=== PATIENT | male | born 1940 | race Caucasian/White ===

== ENCOUNTER → 2016-09-18 | Outpatient (CLI) | payer MEDICARE | LOC: RAD 11:11 | PROVIDERS: ATTEND Family Medicine | DX: R05 Cough (principal) | CPT/HCPCS: 71020 ==

== ENCOUNTER 2016-09-19 13:34 | Emergency (ER) | payer MEDICARE ==
[~2016-09-19 13:34] MED LIST: EPOETIN ALFA INJ 20,000 UNIT/1 ML VIAL (ONCOLOGY) ONE
--- NOTE | 2016-09-19 13:56 | ER Document Report ---
ED Medical Screen (RME) - General Stated Complaint: DIFFICULTY BREATHING Notes: onset: 2 months ago but 3-4 days has become worse dyspnea on exertion, cyanosis of his lips. has had difficulty ambulating. Saw Dr. Augilar two days ago when he did blood work and CXR, 09/18. denies COPD, CHF PMH: CAD requiring CABG, coranary stents, CKD, DM, HTN TRAVEL OUTSIDE OF THE [place] IN LAST 30 DAYS: No - Related Data Allergies/Adverse Reactions: codeine [Codeine] Allergy (Verified 09/19/16 13:49) Past Medical History - Past Medical History Cardiac Medical History: Reports: Hx Coronary Artery Disease, Hx Hypertension Neurological Medical History: Denies: Hx Seizures Endocrine Medical History: Reports: Hx Diabetes Mellitus Type 2 Past Surgical History: Reports: Hx Cardiac Catheterization, Hx Cardiac Surgery, Hx Coronary Artery Bypass Graft
[2016-09-19 14:20] LABS: ABSOLUTE BASOPHILS # (AUTO) 0.1 10^3/uL (0.0-0.2); ABSOLUTE EOSINOPHILS # (AUTO) 0.2 10^3/uL (0.0-0.6); ABSOLUTE LYMPHOCYTES (AUTO) 0.7 10^3/uL (0.5-4.7); ABSOLUTE MONOCYTES (AUTO) 0.9 10^3/uL (0.1-1.4); ABSOLUTE NEUT (AUTO) 4.7 10^3/uL (1.7-8.2); BASOPHILS % (AUTO) 1.5 % (0-2); EOSINOPHILS % (AUTO) 2.3 % (0-6); HEMATOCRIT 26.6 % (37.9-51.0); HEMOGLOBIN 8.2 g/dL (13.5-17.0); MEAN CORPUSCULAR HEMOGLOBIN 24.1 pg (27.0-33.4); MEAN CORPUSCULAR HGB CONC 30.8 g/dL (32.0-36.0); MEAN CORPUSCULAR VOLUME 78 fl (80-97); MONOCYTES % (AUTO) 14.5 % (3-13); RED BLOOD COUNT 3.41 10^6/uL (4.35-5.55); RED CELL DISTRIBUTION WIDTH 18.7 % (11.5-14.0); SEGMENTED NEUTROPHILS % (AUTO) 71.7 % (42-78); WHITE BLOOD COUNT 6.5 10^3/uL (4.0-10.5)
[2016-09-19 14:39] LABS: ALANINE AMINOTRANSFERASE 26 U/L (21-72); ALBUMIN 3.2 g/dL (3.5-5.0); ALKALINE PHOSPHATASE 94 U/L (38-126); ANION GAP 15 (5-19); ASPARTATE AMINO TRANSFERASE 25 U/L (17-59); BILIRUBIN,TOTAL 0.6 mg/dL (0.2-1.3); BLOOD UREA NITROGEN 29 mg/dL (7-20); CALCIUM 8.4 mg/dL (8.4-10.2); CARBON DIOXIDE 22 mmol/L (22-30); CHLORIDE 102 mmol/L (98-107); CREATININE RESULT 2.25 mg/dL (0.52-1.25); GLUCOSE 237 mg/dL (75-110); POTASSIUM 4.9 mmol/L (3.6-5.0); SODIUM 138.6 mmol/L (137-145); TOTAL PROTEIN 6.7 g/dL (6.3-8.2)
[2016-09-19 15:40] LABS: CREATINE KINASE MB 2.05 ng/mL (<4.55)
[2016-09-19 15:46] LABS: TROPONIN I 0.071 ng/mL
[2016-09-19] MEDS ORDERED: EPOETIN ALFA INJ 20000 UNIT/1 ML VIAL (RENAL) SUBCUT ONE (16:29)
[2016-09-19] MEDS ORDERED: EPOETIN ALFA INJ 20000 UNIT/1 ML VIAL (RENAL) IV ONE (16:29)
--- NOTE | 2016-09-19 16:55 | ER Document Report ---
[id number] Mode of Arrival: Ambulatory Information source: Patient, DrClark Najera, Outside Facility Records Notes: 76-year-old male presents with complaints of chronic kidney disease shortness of breath chronic anemia. Patient denies any fevers or chills nausea vomiting or diarrhea. Patient notes shortness of breath occurs when ambulating Patient denies any symptoms at rest denies any bloody stools TRAVEL OUTSIDE OF THE [place] IN LAST 30 DAYS: No - HPI Onset: Last week Onset/Duration: Persistent Quality of pain: No pain Severity: Mild Pain Level: Denies Associated symptoms: Shortness of breath Exacerbated by: Walking Relieved by: Denies Similar symptoms previously: Yes Recently seen / treated by doctor: Yes - Related Data Allergies/Adverse Reactions: codeine [Codeine] Allergy (Verified 09/19/16 13:49) Past Medical History - Social History Smoking Status: Never Smoker Cigarette use (# per day): No Chew tobacco use (# tins/day): No Smoking Education Provided: No Frequency of alcohol use: None Drug Abuse: None Family History: Reviewed & Not Pertinent Patient has suicidal ideation: No Patient has homicidal ideation: No - Past Medical History Cardiac Medical History: Reports: Hx Coronary Artery Disease, Hx Hypertension Neurological Medical History: Denies: Hx Seizures Endocrine Medical History: Reports: Hx Diabetes Mellitus Type 2 Renal/ Medical History: Denies: Hx Peritoneal Dialysis Past Surgical History: Reports: Hx Cardiac Catheterization, Hx Cardiac Surgery, Hx Coronary Artery Bypass Graft - Immunizations Hx Diphtheria, Pertussis, Tetanus Vaccination: Yes Review of Systems - Review of Systems Notes: REVIEW OF SYSTEMS: CONSTITUTIONAL : Denies fever, chills, or sweats. Denies recent illness. EENT: Denies eye, ear, throat, or mouth pain or symptoms. Denies nasal or sinus congestion or discharge. Denies throat, tongue, or mouth swelling or difficulty swallowing. CARDIOVASCULAR: Denies chest pain. Denies palpitations or racing or irregular heart beat. Denies ankle edema. RESPIRATORY: Admits shortness of breath GASTROINTESTINAL: Denies abdominal pain or distention. Denies nausea, vomiting , or diarrhea. Denies blood in vomitus, stools, or per rectum. Denies black, tarry stools. Denies constipation. GENITOURINARY: Denies difficulty urinating, painful urination, burning, frequency, blood in urine, or discharge. MUSCULOSKELETAL: Denies back or neck pain or stiffness. Denies joint pain or swelling. SKIN: Denies rash, lesions or sores. HEMATOLOGIC : Denies easy bruising or bleeding. LYMPHATIC: Denies swollen, enlarged glands. NEUROLOGICAL: Admits to weakness PSYCHIATRIC: Denies anxiety or stress. Denies depression, suicidal ideation, or homicidal ideation. ALL OTHER SYSTEMS REVIEWED AND NEGATIVE. Dictation was performed using [employer] voice recognition software PHYSICAL EXAMINATION: GENERAL: Well-appearing, well-nourished and in no acute distress. HEAD: Atraumatic, normocephalic. EYES: Pupils equal round and reactive to light, extraocular movements intact, sclera anicteric, conjunctiva are normal. ENT: Nares patent, oropharynx clear without exudates. Moist mucous membranes. NECK: Normal range of motion, supple without lymphadenopathy LUNGS: Breath sounds clear to auscultation bilaterally and equal. No wheezes rales or rhonchi. HEART: Regular rate and rhythm without murmurs ABDOMEN: Soft, nontender, nondistended abdomen. No guarding, no rebound. No masses appreciated. Hemoccult negative Musculoskeletal: Normal range of motion, no pitting or edema. No cyanosis. NEUROLOGICAL: Cranial nerves grossly intact. Normal speech, normal gait. Normal sensory, motor exams PSYCH: Normal mood, normal affect. SKIN: Warm, Dry, normal turgor, no rashes or lesions noted. Physical Exam - Vital signs Vitals: Temp Pulse Resp BP Pulse Ox 98.2 F 73 27 H 147/63 H 95 09/19/16 13:49 09/19/16 13:49 09/19/16 13:49 09/19/16 13:49 09/19/16 13:49 Course - Re-evaluation Re-evalutation: 09/19/16 16:54 Dr noriega consulted, he beleives the anemia is secondary to CKD, request procrit. pt happy with this plan will follow up tomorrow 09/19/16 17:19 Patient was ambulated and satting 100% do not believe this is anything respiratory related but rather due to anemia of chronic kidney disease Hemoccult was negative patient will follow up with PCP tomorrow After performing a Medical Screening Examination, I estimate there is LOW risk for ACUTE CORONARY SYNDROME, RESPIRATORY FAILURE, SEPSIS OR MENINGITIS, thus I consider the discharge disposition reasonable. The patient and I have discussed the diagnosis and risks, and we agree with discharging home with close follow- up. We also discussed returning to the Emergency Department immediately if new or worsening symptoms occur. We have discussed the symptoms which are most concerning (e.g., changing or worsening pain, trouble swallowing or breathing, neck stiffness, fever) that necessitate immediate return. 09/19/16 23:33 - Vital Signs Vital signs: Temp Pulse Resp BP Pulse Ox 98.2 F 73 24 H 155/76 H 94 09/19/16 13:49 09/19/16 13:49 09/19/16 17:01 09/19/16 17:01 09/19/16 17:01 - Laboratory Result Diagrams: 09/19/16 14:00 09/19/16 14:00 Laboratory results interpreted by me: 09/19/16 09/19/16 09/19/16 14:00 14:00 14:00 RBC 3.41 L Hgb 8.2 L Hct 26.6 L MCV 78 L MCH 24.1 L MCHC 30.8 L RDW 18.7 H Lymphocytes % 10.0 L Monocytes % 14.5 H BUN 29 H Creatinine 2.25 H Est GFR ( Amer) 34 L Est GFR (Non-Af Amer) 28 L Glucose 237 H Creatine Kinase NT-Pro-B Natriuret Pep 72258 H Albumin 3.2 L 09/19/16 14:00 RBC Hgb Hct MCV MCH MCHC RDW Lymphocytes % Monocytes % BUN Creatinine Est GFR ( Amer) Est GFR (Non-Af Amer) Glucose Creatine Kinase 197 H NT-Pro-B Natriuret Pep Albumin - Diagnostic Test Radiology reviewed: Image reviewed, Reports reviewed Discharge - Discharge Clinical Impression: CKD (chronic kidney disease) Qualifiers: Chronic kidney disease stage: stage 3 (moderate) Qualified Code(s): N18.3 - Chronic kidney disease, stage 3 (moderate) Anemia Qualifiers: Anemia type: other cause Other causes of anemia: other cause, not classified Qualified Code(s): D64.89 - Other specified anemias Dyspnea Qualifiers: Dyspnea type: dyspnea on exertion Qualified Code(s): R06.09 - Other forms of dyspnea Condition: Stable Disposition: HOME, SELF-CARE Instructions: Anemia ([facility]) Referrals: RENUKA NORIEGA MD [Primary Care Provider] - Follow up tomorrow
[2016-09-19 17:38] VITALS: BP 155/76
--- NOTE | 2016-09-20 14:55 | EKG REPORT ---
SEVERITY:- ABNORMAL ECG - SINUS RHYTHM NON SPECIFIC IVCD : Confirmed by: Rosa Bosch 20-Sep-2016 14:53:38
== END 2016-09-19 17:39 | disposition home or self-care (01) ==
LOC: ER 13:34
DX: N18.3 Chronic kidney disease, stage 3 (moderate) (principal); D64.89 Other specified anemias; R06.09 Other forms of dyspnea; R06.02 Shortness of breath
CPT/HCPCS: 93005; 99284; 96372; 36415; 82553; 82550; 85025; 82272; 80053; 84484; 83880; 71020; 93010; J0885; Q4081

== ENCOUNTER → 2016-09-23 | Outpatient (CLI) | payer MEDICARE ==
[2016-09-23 11:54] LABS: ABSOLUTE BASOPHILS # (AUTO) 0.1 10^3/uL (0.0-0.2); ABSOLUTE EOSINOPHILS # (AUTO) 0.1 10^3/uL (0.0-0.6); ABSOLUTE LYMPHOCYTES (AUTO) 0.9 10^3/uL (0.5-4.7); ABSOLUTE NEUT (AUTO) 5.6 10^3/uL (1.7-8.2); BASOPHILS % (AUTO) 1.7 % (0-2); EOSINOPHILS % (AUTO) 1.9 % (0-6); HEMATOCRIT 29.8 % (37.9-51.0); HGB HCT DIFFERENCE -2.8; LYMPHOCYTES % (AUTO) 11.1 % (13-45); MEAN CORPUSCULAR HEMOGLOBIN 23.3 pg (27.0-33.4); MEAN CORPUSCULAR VOLUME 77 fl (80-97); MONOCYTES % (AUTO) 13.2 % (3-13); RED BLOOD COUNT 3.85 10^6/uL (4.35-5.55); RED CELL DISTRIBUTION WIDTH 19.3 % (11.5-14.0); SEGMENTED NEUTROPHILS % (AUTO) 72.1 % (42-78); WHITE BLOOD COUNT 7.8 10^3/uL (4.0-10.5)
[2016-09-23 12:24] LABS: ALANINE AMINOTRANSFERASE 30 U/L (21-72); ALBUMIN 3.1 g/dL (3.5-5.0); ALKALINE PHOSPHATASE 100 U/L (38-126); ANION GAP 14 (5-19); ASPARTATE AMINO TRANSFERASE 33 U/L (17-59); BILIRUBIN,TOTAL 0.5 mg/dL (0.2-1.3); BLOOD UREA NITROGEN 29 mg/dL (7-20); CALCIUM 8.8 mg/dL (8.4-10.2); CARBON DIOXIDE 23 mmol/L (22-30); CHLORIDE 104 mmol/L (98-107); CREATININE RESULT 2.37 mg/dL (0.52-1.25); GLUCOSE 173 mg/dL (75-110); POTASSIUM 5.1 mmol/L (3.6-5.0); SODIUM 141.1 mmol/L (137-145); TOTAL PROTEIN 6.7 g/dL (6.3-8.2)
== END ==
LOC: OD 11:02
PROVIDERS: ATTEND Family Medicine
DX: D64.9 Anemia, unspecified (principal); N18.9 Chronic kidney disease, unspecified
CPT/HCPCS: 36415; 80053; 85025

== ENCOUNTER 2016-09-30 13:06 | Inpatient (IN) | payer MEDICARE ==
[2016-09-30] MEDS ORDERED: IPRATROPIUM/ALBUTEROL 0.5-2.5 MG/3 ML AMPUL NEB PRN (13:10)
[2016-09-30] MEDS ORDERED: ACETAMINOPHEN 325 MG TABLET PO PRN (13:19)
[2016-09-30] MEDS ORDERED: DEXTROSE 50%-WATER 25 GM/50 ML DISP.SYRIN IV PRN ×2 (13:22)
[2016-09-30] MEDS ORDERED: DEXTROSE 40% GEL 15 GM TUBE PO PRN ×2 (13:22)
[2016-09-30] MEDS ORDERED: GLUCAGON,HUMAN RECOMB 1 MG INJ IM PRN (13:22)
[2016-09-30] MEDS ORDERED: INFLUENZA ADLT QUAD (36MOS+) 2016-17 VAC 0.5 ML SYR IM PRN (13:47)
[2016-09-30 14:03] LABS: ABSOLUTE BASOPHILS # (AUTO) 0.1 10^3/uL (0.0-0.2); ABSOLUTE EOSINOPHILS # (AUTO) 0.1 10^3/uL (0.0-0.6); ABSOLUTE LYMPHOCYTES (AUTO) 0.8 10^3/uL (0.5-4.7); ABSOLUTE MONOCYTES (AUTO) 0.7 10^3/uL (0.1-1.4); ABSOLUTE NEUT (AUTO) 5.5 10^3/uL (1.7-8.2); BASOPHILS % (AUTO) 1.1 % (0-2); EOSINOPHILS % (AUTO) 1.2 % (0-6); HEMATOCRIT 29.3 % (37.9-51.0); HEMOGLOBIN 8.9 g/dL (13.5-17.0); HGB HCT DIFFERENCE -2.6; LYMPHOCYTES % (AUTO) 10.8 % (13-45); MEAN CORPUSCULAR HGB CONC 30.4 g/dL (32.0-36.0); MEAN CORPUSCULAR VOLUME 76 fl (80-97); MONOCYTES % (AUTO) 9.3 % (3-13); RED BLOOD COUNT 3.88 10^6/uL (4.35-5.55); RED CELL DISTRIBUTION WIDTH 19.7 % (11.5-14.0); SEGMENTED NEUTROPHILS % (AUTO) 77.6 % (42-78)
[2016-09-30 14:19] LABS: ANION GAP 14 (5-19); BLOOD UREA NITROGEN 30 mg/dL (7-20); CALCIUM 9.3 mg/dL (8.4-10.2); CARBON DIOXIDE 24 mmol/L (22-30); CHLORIDE 104 mmol/L (98-107); CREATINE KINASE 184 U/L (55-170); GLUCOSE 154 mg/dL (75-110); POTASSIUM 4.5 mmol/L (3.6-5.0); SODIUM 141.7 mmol/L (137-145)
[2016-09-30 14:30] LABS: CREATINE KINASE MB 2.83 ng/mL (<4.55); TROPONIN I 0.037 ng/mL
--- NOTE | 2016-09-30 14:53 | HISTORY AND PHYSICAL E ---
History and Physical NAME: TYRESE QUISPE : 1940 AGE: 76Y ADMITTED: 09/30/2016 ROOM: 424 CHIEF COMPLAINT: Shortness of breath, anemia. HISTORY OF PRESENT ILLNESS: This is a 76-year-old man with well known history of coronary artery disease with significant left ventricular dysfunction with *------* 29% in 2002. Patient underwent for cardiac cath and so the severe three vessel disease with the CARTAGENA graft or LAD and patent vein graft with this occluded marginal branch, right coronary artery vein graft was occluded in the interval with ambulance officer to the mid and distal right coronary artery. He has been followed by Dr. Carcamo as an outpatient. Patient also recently admitted in the [facility] with shortness of breath and non-ST [facility] and a stress test was done. It was also negative. Patient sees Dr. Whelan as an outpatient. Patient also has some underlying dementia. The patient also has history of pneumonia too. Patient recently came to see me as an outpatient. Patient was feeling very short of breath and feeling not well. Hemoglobin was 8.2. Patient went to the ER and was given Procrit injections. It was brought up to 9.2 but patient was started with some antibiotic for the bronchitis and infiltrate. Patient still feeling short of breath and a little hypoxia. The patient came to my office. Otherwise, no chest pain, no shortness of breath but when patient moves around and walk, patient's oxygen saturation dropped to 82% and by itself when patient sits down, it goes up to 100% and decided to admit for further evaluation and treatment. Patient agrees about this at this point. Patient initially in the past refused to admit in the hospital but this time he is pretty much agreeable. PAST MEDICAL HISTORY: 1. Adult onset diabetes mellitus. 2. Coronary artery disease with the bypass surgery and history of stent. Recently seen at [facility]. Stress test was negative last April. 3. Hypertension. 4. Hyperlipidemia. 5. History of cerebrovascular accident. 6. History of underlying dementia. DRUG ALLERGIES: CODEINE. FAMILY HISTORY: Negative for any coronary artery disease. SOCIAL HISTORY: He is . Nonsmoker. No alcohol. Currently lives with his son. REVIEW OF SYSTEMS: As above. All other pertinents negative. CURRENT MEDICATIONS: 1. Aspirin 81 mg daily. 2. Prevacid 30 mg daily. 3. Patient is taking Plavix 75 mg daily. 4. Keppra 500 mg daily for the seizure activity status post Levaquin. See the neurologist for this. 5. Isosorbide 30 mg daily. 6. Colchicine 0.6 mg p.r.n. for gout. 7. Prevacid 40 mg daily. 8. Glipizide 5 mg twice daily. 9. Metoprolol tartrate 100 mg p.o. twice daily. PHYSICAL EXAMINATION: VITAL SIGNS: Temperature is 96.3, pulse was 76, blood pressure was 118/79, respirations were 16, O2 sat is 98% on room air but when he move around and walks, it drops to 82%. GENERAL: The patient is alert, awake, oriented times three. Currently walk with a walker. HEAD/NECK: Normocephalic. PERRLA. LUNGS: No wheezing. No rales. No rhonchi. HEART: S1, S2 are present. ABDOMEN: Soft. Bowel sounds present. EXTREMITIES: No edema. NEUROLOGIC: No focal weakness. Patient moves all 4 extremities. ASSESSMENT AND PLAN: 1. Hypoxia with exertion. 2. Shortness of breath. 3. Anemia, probably from chronic kidney disease. 4. Acute renal failure on chronic kidney disease. Current creatinine was 2.29. 5. Coronary artery disease, status post bypass. 6. Congestive heart failure. Last EF was 34-40%. 7. Hyperlipidemia. 8. History of peptic ulcer disease. 9. Seizure disorder. 10. Dementia. 11. Type 2 diabetes mellitus. PLAN: Admit the patient in the tele bed. Put the patient on oxygen. Get CBC and chem-7. Consult Dr. Coronel and Dr. Poe for further evaluation. Reassess the echo again. Continue to monitor the patient. We will also get the VQ scan to rule out any underling PE with the history of the adjacent hypoxia. Patient is currently hemodynamically stable. More than 45 minutes spent examining the patient, discussed with the son in the room and agree about to direct admit in the hospital. DICTATING PHYSICIAN: RENUKA RAMIREZ M.D. [id number] PHY#: [id number] ID: [id number] JOB#: [id number] ACCT: [id number] cc:RENUKA RAMIREZ M.D. >
[2016-09-30] MEDS ORDERED: FUROSEMIDE INJ/PF 20 MG/2 ML SDV IV ONE (16:45)
[2016-09-30] MEDS ORDERED: DOCUSATE SODIUM 100 MG CAPSULE PO SCH (18:00)
[2016-09-30] MEDS: CEFTRIAXONE 1 GM/D5W RTU 1 GM/50 ML RTUPB IV SCH (19:04)
[2016-09-30 20:25] LABS: CREATINE KINASE MB 2.85 ng/mL (<4.55); TROPONIN I 0.034 ng/mL
[2016-10-01 02:14] LABS: CREATINE KINASE MB 3.24 ng/mL (<4.55)
[2016-10-01 02:18] LABS: TROPONIN I 0.045 ng/mL
[2016-10-01 07:34] LABS: ALANINE AMINOTRANSFERASE 49 U/L (21-72); ALBUMIN 3.1 g/dL (3.5-5.0); ALKALINE PHOSPHATASE 96 U/L (38-126); ANION GAP 16 (5-19); ASPARTATE AMINO TRANSFERASE 40 U/L (17-59); BILIRUBIN,TOTAL 0.9 mg/dL (0.2-1.3); BLOOD UREA NITROGEN 32 mg/dL (7-20); CALCIUM 9.1 mg/dL (8.4-10.2); CARBON DIOXIDE 22 mmol/L (22-30); CHLORIDE 103 mmol/L (98-107); CREATININE RESULT 2.11 mg/dL (0.52-1.25); GLUCOSE 115 mg/dL (75-110); POTASSIUM 3.9 mmol/L (3.6-5.0); SODIUM 141.2 mmol/L (137-145); TOTAL PROTEIN 6.7 g/dL (6.3-8.2)
[2016-10-01 07:51] LABS: MAGNESIUM 1.1 mg/dL (1.6-2.3)
[2016-10-01] MEDS ORDERED: ENOXAPARIN SODIUM INJ 30 MG/0.3 ML DISP.SYRIN SUBCUT SCH (08:00)
[2016-10-01] MEDS ORDERED: BISACODYL 5 MG TABEC PO ONE (08:21)
[2016-10-01] MEDS ORDERED: MAGNESIUM CITRATE 296 ML BOTTLE PO ONE (08:21)
--- NOTE | 2016-10-01 08:25 | PDOC PROGRESS REPORT ---
Subjective Progress Note for:: 10/01/16 Subjective:: Patient was admitted yesterday because of the shortness of the breath and recent CT scan of the chest was done with supposed the right-sided moderate pleural effusion possible airspace disease. Patient's VQ scan is negative sitting hemoglobin is 9.4 patient's iron and ferritin is also low as denied any blood in the stools no black stools. Echocardiogram was done. And have a history of a duodenal ulceration. The esophagitis and the patient had an endoscopy was done last year and we consulted Dr. Damian for further evaluations discussed with the son about the or the test results. Physical Exam Vital Signs: Temp Pulse Resp BP Pulse Ox 97.3 F 89 18 119/53 L 97 10/01/16 03:46 10/01/16 07:00 10/01/16 03:46 10/01/16 03:46 10/01/16 03:46 Intake & Output 09/30/16 10/01/16 10/02/16 06:59 06:59 06:59 Intake Total 5 Balance 5 Weight 84 kg General appearance: PRESENT: no acute distress Head exam: PRESENT: normocephalic Eye exam: PRESENT: PERRLA Mouth exam: PRESENT: neck supple Neck exam: PRESENT: full ROM Respiratory exam: PRESENT: decreased breath sounds. ABSENT: wheezes Cardiovascular exam: PRESENT: +S1, +S2 GI/Abdominal exam: PRESENT: normal bowel sounds, soft. ABSENT: tenderness Extremities exam: ABSENT: pedal edema Neurological exam: PRESENT: alert, awake, oriented to place, oriented to time Results Laboratory Results: 09/30/16 13:46 10/01/16 06:05 09/30/16 09/30/16 09/30/16 13:46 13:46 13:46 WBC 7.0 RBC 3.88 L Hgb 8.9 L Hct 29.3 L MCV 76 L MCH 23.0 L MCHC 30.4 L RDW 19.7 H Plt Count 223 Seg Neutrophils % 77.6 Lymphocytes % 10.8 L Monocytes % 9.3 Eosinophils % 1.2 Basophils % 1.1 Absolute Neutrophils 5.5 Absolute Lymphocytes 0.8 Absolute Monocytes 0.7 Absolute Eosinophils 0.1 Absolute Basophils 0.1 Retic Count (auto) 2.32 Absolute Retic 0.090 Sodium 141.7 Potassium 4.5 Chloride 104 Carbon Dioxide 24 Anion Gap 14 BUN 30 H Creatinine 2.00 H Est GFR ( Amer) 39 L Est GFR (Non-Af Amer) 33 L Glucose 154 H Calcium 9.3 Magnesium Iron 21 L TIBC 386 % Saturation 5 Ferritin 10.40 L Total Bilirubin AST ALT Alkaline Phosphatase Total Protein Albumin Vitamin B12 > 1000.0 H Folate 19.80 10/01/16 06:05 WBC RBC Hgb Hct MCV MCH MCHC RDW Plt Count Seg Neutrophils % Lymphocytes % Monocytes % Eosinophils % Basophils % Absolute Neutrophils Absolute Lymphocytes Absolute Monocytes Absolute Eosinophils Absolute Basophils Retic Count (auto) Absolute Retic Sodium 141.2 Potassium 3.9 Chloride 103 Carbon Dioxide 22 Anion Gap 16 BUN 32 H Creatinine 2.11 H Est GFR ( Amer) 37 L Est GFR (Non-Af Amer) 31 L Glucose 115 H Calcium 9.1 Magnesium 1.1 L* Iron TIBC % Saturation Ferritin Total Bilirubin 0.9 AST 40 ALT 49 Alkaline Phosphatase 96 Total Protein 6.7 Albumin 3.1 L Vitamin B12 Folate 09/30/16 09/30/16 09/30/16 13:46 13:46 19:36 Creatine Kinase 184 H 162 CK-MB (CK-2) 2.83 Troponin I 0.037 NT-Pro-B Natriuret Pep 00138 H 09/30/16 10/01/16 10/01/16 19:36 01:25 01:25 Creatine Kinase 145 CK-MB (CK-2) 2.85 3.24 Troponin I 0.034 0.045 NT-Pro-B Natriuret Pep Impressions: Chest CT 09/30/16 00:00 IMPRESSION: Small right middle lobar fibrosis ; differential diagnosis includes early/small right middle lobar pneumonia. Moderate -large nonspecific right pleural effusion. Surveillance with contrast CT of the chest recommended within 7-12 weeks. Lung Scan-VQ NM 09/30/16 00:00 IMPRESSION: Matching airspace disease on chest x-ray with decreased perfusion and ventilation on nuclear medicine scan, triple match is a low probability scan for pulmonary embolus. Chest X-Ray 09/30/16 13:14 IMPRESSION: Right lower lobe airspace disease with small right pleural effusion Assessment & Plan - Time Time Spent with patient: 15-24 minutes Medications reviewed and adjusted accordingly: Yes - Inpatient Certification Medical Necessity: Need Close Monitoring Due to Risk of Patient Decompensation, Need for IV Antibiotics Post Hospital Care: D/C Capital Equipment Specialist Documentation - Plan Summary Plan Summary: Consult the GI and also order the ultrasound guided thoracocentesis and continues the current medication. We add the Zithromax to cover the atypical bacteria
--- NOTE | 2016-10-01 08:27 | PDOC CONSULTATION ---
Consultation Consult Date: 10/01/16 Attending physician:: RENUKA RAMIREZ Consult reason:: Iron def anemia, R pleural effusion History of Present Illness Admission Date/PCP: 09/30/16 13:06 RENUKA RAMIREZ MD Patient complains of: Worsening SOB History of Present Illness: TYRESE QUISPE is a 76 year old male with known history of CHF, CAD also chronic kidney disease stage 4, who presents with a 3 month history of worsening shortness of breath and chest pain. Of note about a year ago patient did have a non-ST elevation DC, ultimately was transferred to [place], and apparently had an EF as low as 29%, his PCP Dr. Ramirez tells me his EF recently has been higher up to 35-40% on echocardiogram done in [place]. There is one pending now. He is also had some recent worsening anemia, Dr. Ramirez did send iron studies which indicated a ferritin of 10, iron saturation of 5%. Of note, in the [employer] system, we do see that he had a EGD done in 2014 and was found to have duodenal ulcers. He also is H. pylori positive. Unsure if he was fully treated for the H. pylori. He denies any black tarry stool or any hematochezia or hematemesis. His major she has been increasing shortness of breath. Because of the shortness of breath and chest pain, Dr. Ramirez ultimately did a pulmonary embolus him workup, this culminated in a CT of the chest, which indicated no evidence of PE but it did indicate pneumonia as well as right pleural effusion. Past Medical History Cardiac Medical History: Reports: Coronary Artery Disease, Hypertension Neurological Medical History: Denies: Seizures Endocrine Medical History: Reports: Diabetes Mellitus Type 2 Past Surgical History Past Surgical History: Reports: Cardiac Catheterization, Coronary Artery Bypass Graft, Other - EGD, colonoscopy Social History Smoking Status: Former Smoker Last Time Smoked: 25 Frequency of Alcohol Use: None Hx Recreational Drug Use: No Drugs: None Hx Prescription Drug Abuse: No - Advance Directive Resuscitation Status: Full Code Family History Family History: Reviewed & Not Pertinent Parental Family History Reviewed: Yes Children Family History Reviewed: Yes Sibling(s) Family History Reviewed.: Yes Medication/Allergy Home Medications: Amlodipine Besylate [Norvasc 5 mg Tablet] 5 mg PO BID 09/30/16 Clopidogrel Bisulfate [Plavix] 75 mg PO DAILY 09/30/16 Colchicine [Colchicine 0.6 mg Tablet] 0.6 mg PO DAILY 09/30/16 Glipizide 5 mg PO BID 09/30/16 Isosorbide Mononitrate [Imdur 30 mg Tablet.er] 30 mg PO DAILY 09/30/16 Levetiracetam [Keppra Xr 500 Mg Tab.Sr] 500 mg PO DAILY 09/30/16 Metoprolol Tartrate [Lopressor] 100 mg PO BID 09/30/16 Nitroglycerin 4.9 gm TL ASDIR PRN 09/30/16 Pravastatin Sodium [Pravachol] 40 mg PO DAILY 09/30/16 Simvastatin [Zocor 10 mg Tablet] 10 mg PO DAILY 09/30/16 Allergies/Adverse Reactions: codeine [Codeine] Allergy (Verified 09/19/16 13:49) Review of Systems Constitutional: ABSENT: chills, fever(s), headache(s), weight gain, weight loss Eyes: ABSENT: visual disturbances Ears: ABSENT: hearing changes Cardiovascular: PRESENT: chest pain, dyspnea on exertion Respiratory: PRESENT: dyspnea Gastrointestinal: ABSENT: abdominal pain, constipation, diarrhea, hematemesis, hematochezia, nausea, vomiting Genitourinary: ABSENT: dysuria, hematuria Musculoskeletal: ABSENT: joint swelling Integumentary: ABSENT: rash, wounds Neurological: ABSENT: abnormal gait, abnormal speech, confusion, dizziness, focal weakness, syncope Psychiatric: ABSENT: anxiety, depression, homidical ideation, suicidal ideation Endocrine: ABSENT: cold intolerance, heat intolerance, polydipsia, polyuria Hematologic/Lymphatic: ABSENT: easy bleeding, easy bruising Physical Exam Vital Signs: Temp Pulse Resp BP Pulse Ox 97.3 F 89 18 119/53 L 97 10/01/16 03:46 10/01/16 07:00 10/01/16 03:46 10/01/16 03:46 10/01/16 03:46 Intake & Output 09/30/16 10/01/16 10/02/16 06:59 06:59 06:59 Intake Total 5 Balance 5 Weight 84 kg General appearance: PRESENT: no acute distress, well-developed, well-nourished Head exam: PRESENT: atraumatic, normocephalic Eye exam: PRESENT: conjunctiva pink, EOMI, PERRLA. ABSENT: scleral icterus Ear exam: PRESENT: normal external ear exam Mouth exam: PRESENT: moist, tongue midline Neck exam: ABSENT: carotid bruit, JVD, lymphadenopathy, thyromegaly Respiratory exam: PRESENT: crackles - Right-sided, decreased breath sounds Cardiovascular exam: PRESENT: RRR. ABSENT: diastolic murmur, rubs, systolic murmur Pulses: PRESENT: normal dorsalis pedis pul Vascular exam: PRESENT: normal capillary refill GI/Abdominal exam: PRESENT: normal bowel sounds, soft. ABSENT: distended, guarding, mass, organolmegaly, rebound, tenderness Rectal exam: PRESENT: deferred Extremities exam: PRESENT: full ROM. ABSENT: calf tenderness, clubbing, pedal edema Neurological exam: PRESENT: alert, awake, oriented to person, oriented to place , oriented to time, oriented to situation, CN II-XII grossly intact. ABSENT: motor sensory deficit Psychiatric exam: PRESENT: appropriate affect, normal mood. ABSENT: homicidal ideation, suicidal ideation Skin exam: PRESENT: dry, intact, warm. ABSENT: cyanosis, rash Results Laboratory Results: 09/30/16 13:46 10/01/16 06:05 09/30/16 09/30/16 09/30/16 13:46 13:46 13:46 WBC 7.0 RBC 3.88 L Hgb 8.9 L Hct 29.3 L MCV 76 L MCH 23.0 L MCHC 30.4 L RDW 19.7 H Plt Count 223 Seg Neutrophils % 77.6 Lymphocytes % 10.8 L Monocytes % 9.3 Eosinophils % 1.2 Basophils % 1.1 Absolute Neutrophils 5.5 Absolute Lymphocytes 0.8 Absolute Monocytes 0.7 Absolute Eosinophils 0.1 Absolute Basophils 0.1 Retic Count (auto) 2.32 Absolute Retic 0.090 Sodium 141.7 Potassium 4.5 Chloride 104 Carbon Dioxide 24 Anion Gap 14 BUN 30 H Creatinine 2.00 H Est GFR ( Amer) 39 L Est GFR (Non-Af Amer) 33 L Glucose 154 H Calcium 9.3 Magnesium Iron 21 L TIBC 386 % Saturation 5 Ferritin 10.40 L Total Bilirubin AST ALT Alkaline Phosphatase Total Protein Albumin Vitamin B12 > 1000.0 H Folate 19.80 10/01/16 06:05 WBC RBC Hgb Hct MCV MCH MCHC RDW Plt Count Seg Neutrophils % Lymphocytes % Monocytes % Eosinophils % Basophils % Absolute Neutrophils Absolute Lymphocytes Absolute Monocytes Absolute Eosinophils Absolute Basophils Retic Count (auto) Absolute Retic Sodium 141.2 Potassium 3.9 Chloride 103 Carbon Dioxide 22 Anion Gap 16 BUN 32 H Creatinine 2.11 H Est GFR ( Amer) 37 L Est GFR (Non-Af Amer) 31 L Glucose 115 H Calcium 9.1 Magnesium 1.1 L* Iron TIBC % Saturation Ferritin Total Bilirubin 0.9 AST 40 ALT 49 Alkaline Phosphatase 96 Total Protein 6.7 Albumin 3.1 L Vitamin B12 Folate 09/30/16 09/30/16 09/30/16 13:46 13:46 19:36 Creatine Kinase 184 H 162 CK-MB (CK-2) 2.83 Troponin I 0.037 NT-Pro-B Natriuret Pep 57827 H 09/30/16 10/01/16 10/01/16 19:36 01:25 01:25 Creatine Kinase 145 CK-MB (CK-2) 2.85 3.24 Troponin I 0.034 0.045 NT-Pro-B Natriuret Pep Impressions: Chest CT 09/30/16 00:00 IMPRESSION: Small right middle lobar fibrosis ; differential diagnosis includes early/small right middle lobar pneumonia. Moderate -large nonspecific right pleural effusion. Surveillance with contrast CT of the chest recommended within 7-12 weeks. Lung Scan-VQ NM 09/30/16 00:00 IMPRESSION: Matching airspace disease on chest x-ray with decreased perfusion and ventilation on nuclear medicine scan, triple match is a low probability scan for pulmonary embolus. Chest X-Ray 09/30/16 13:14 IMPRESSION: Right lower lobe airspace disease with small right pleural effusion Status: Image reviewed by me Assessment & Plan - Diagnosis (1) Iron deficiency anemia secondary to blood loss (chronic) Is this a current diagnosis for this admission?: YesPlan: Ferritin of 10, saturation 5%, first concern would be GI blood loss, suggest evaluation by gastroenterology with consideration of EGD and colonoscopy, patient does have history of duodenal ulcers. I will give 1 dose of IV iron today. Ultimately once we are able to optimize his iron stores, we could then treat him with erythropoietin stability agents as an outpatient. (2) Pleural effusion Is this a current diagnosis for this admission?: YesPlan: Right pleural effusion, unknown cause, more likely to be a transudate process with either heart failure or renal failure is the cause, but a parapneumonic effusion or less likely a malignant effusion is possible. Agree with thoracentesis, this should be done today. - Time Time Spent: Greater than 70 Minutes Critical Time spent with patient: 35 or more minutes - Inpatient Certification Based on my medical assessment, after consideration of the patient's comorbidities, presenting symptoms, or acuity I expect that the services needed warrant INPATIENT care.: Yes I certify that my determination is in accordance with my understanding of Medicare's requirements for reasonable and necessary INPATIENT services [42 CFR 412.3e].: Yes Medical Necessity: Failure to Improve With Outpatient Therapy, Need For Continuous Telemetry Monitoring, Need for IV Antibiotics, Need for Surgery
[2016-10-01] MEDS: MAGNESIUM SULFATE/D5W 1 GM/100 ML RTUPB IV SCH ×2 (08:57→11:50)
--- NOTE | 2016-10-01 09:47 | XCELERA REPORT ---
[address] [address] Transthoracic Echocardiogram Report Name: TYRESE QUISPE V Age: 76 yrs Gender: Male : 1940 Patient Status: Inpatient Patient Location: [id number] Study Date: 09/30/2016 06:01 PM Height: 70 in Weight: 185 lb BSA: 2.0 m2 Reason For Study: chf Ordering Physician: RENUKA RAMIREZ Performed By: Mary De La Cruz Interpretation Summary The Ejection Fraction estimate is 35-40% Left ventricular systolic function is moderately reduced. Doppler measurements suggest impaired left ventricular relaxation, which is associated with grade I/IV or mild diastolic dysfunction There is basal posterior wall akinesis There is basal inferior wall akinesis The right ventricular systolic function is moderately reduced. The right ventricle is borderline dilated. The left atrium is moderately dilated. The right atrium is mild to moderately dilated. There is a mild to moderate amount of mitral regurgitation There is no mitral valve stenosis. There is a trace amount of aortic regurgitation There is mild aortic stenosis There is a peak gradient of 10-15 mm of Hg. There is a mild amount of tricuspid regurgitation There is mild pulmonary hypertension by echo Right ventricular systolic pressure is estimated to be elevated at 30- 40mmHg. There is no pericardial effusion. MMode/2D Measurements \T\ Calculations RVDd: 4.6 cm LVIDd: 5.6 cm FS: 11.4 % Ao root diam: IVSd: 1.0 cm LVIDs: 4.9 cm EDV(Teich): 151.7 ml 2.6 cm LVPWd: 0.99 cm ESV(Teich): 114.8 ml Ao root area: EF(Teich): 24.3 % 5.3 cm2 LA dimension: 4.5 cm LVOT diam: LVLd ap4: 9.1 cm SV(MOD-sp4): 65.0 ml 2.0 cm EDV(MOD-sp4): LA A2Cs: 24.3 cm2 LVOT area: 178.0 ml LVLs ap4: 8.7 cm 3.2 cm2 ESV(MOD-sp4): 113.0 ml EF(MOD-sp4): 36.5 % LA A4Cs: LA length: 6.5 cm LA Vol Index (BP): LA Volume: 77.4 ml 24.5 cm2 38.3 ml/m2 Doppler Measurements \T\ Calculations MV E max nisa: MV P1/2t max nisa: Ao V2 max: LV V1 max P.8 cm/sec 92.8 cm/sec 169.3 cm/sec 5.4 mmHg MV A max nisa: MV P1/2t: 75.6 msec Ao max PG: LV V1 max: 72.6 cm/sec MVA(P1/2t): 2.9 cm2 11.5 mmHg 116.5 cm/sec MV E/A: 1.3 MV dec slope: LATISHA(V,D): 2.2 cm2 359.3 cm/sec2 MV dec time: 0.24 sec MR max nisa: PA V2 max: PI end-d nisa: TR max nisa: 499.2 cm/sec 62.4 cm/sec 117.4 cm/sec 268.8 cm/sec MR max PG: PA max P.6 mmHg TR max P.7 mmHg PA acc slope: 28.9 mmHg 505.5 cm/sec2 PA acc time: 0.12 sec PA pr(Accel): 26.7 mmHg Left Ventricle The left ventricle is borderline dilated. There is borderline concentric left ventricular hypertrophy. Left ventricular systolic function is moderately reduced. The Ejection Fraction estimate is 35-40%. Doppler measurements suggest impaired left ventricular relaxation, which is associated with grade I/IV or mild diastolic dysfunction. There is basal posterior wall akinesis. There is basal inferior wall akinesis. Right Ventricle The right ventricle is borderline dilated. There is normal right ventricular wall thickness. The right ventricular systolic function is moderately reduced. Atria The right atrium is mild to moderately dilated. The left atrium is moderately dilated. Interarterial septum not well visualized and not well dopplered. Cannot comment on ASD/PFO presence. Mitral Valve There is mild mitral leaflet calcification. There is mild mitral annular calcification. There is no mitral valve stenosis. There is a mild to moderate amount of mitral regurgitation. Aortic Valve The aortic valve is mildly calcified. There is mild aortic stenosis. There is a peak gradient of 10-15 mm of Hg. There is a trace amount of aortic regurgitation. Tricuspid Valve The tricuspid valve is not well visualized, but is grossly normal. There is no tricuspid stenosis. There is a mild amount of tricuspid regurgitation. There is mild pulmonary hypertension by echo. Right ventricular systolic pressure is estimated to be elevated at 30-40mmHg. Pulmonic Valve There is a trace or physiologic amount of pulmonic regurgitation. Great Vessels The aortic root is not well visualized but is probably normal size. The inferior vena cava appeared normal and decreased < 50% with respiration (RAP 10-15 mmHg). Effusions There is no pericardial effusion. : RENUKA RAMIREZ > Rosa Bosch
[2016-10-01] MEDS: FUROSEMIDE INJ/PF 20 MG/2 ML SDV IV SCH (10:18)
[2016-10-01] MEDS: AZITHROMYCIN 250 MG TABLET PO SCH (10:18)
[2016-10-01 10:25] LABS: PROTHROMBIN TIME 16.9 SEC (11.4-15.4)
[2016-10-01] MEDS ORDERED: FERUMOXYTOL (NON-ESRD) 510 MG/NS 100 ML IV ONE ×2 (10:30)
[2016-10-01] MEDS ORDERED: MAGNESIUM SULFATE PF/INJ 40 MEQ/10 ML SDV IV ONE (11:37)
--- NOTE | 2016-10-01 11:37 | PDOC CONSULTATION ---
Consultation Consult Date: 10/01/16 Attending physician:: RENUKA RAMIREZ Consult reason:: Coronary artery disease, CHF History of Present Illness Admission Date/PCP: 09/30/16 13:06 RENUKA RAMIREZ MD History of Present Illness: TYRESE QUISPE is a 76 year old male with known history of CHF, CAD also chronic kidney disease stage 4, who presents with a 3 month history of worsening shortness of breath and chest pain. Of note about a year ago patient did have a non-ST elevation MT, ultimately was transferred to [place], and apparently had an EF as low as 29%, his PCP Dr. Ramirez tells me his EF recently has been higher up to 35-40% on echocardiogram done in [place]. There is one pending now. He is also had some recent worsening anemia, Dr. Ramirez did send iron studies which indicated a ferritin of 10, iron saturation of 5%. Of note, in the [email or web address] system, we do see that he had a EGD done in 2014 and was found to have duodenal ulcers. He also is H. pylori positive. Unsure if he was fully treated for the H. pylori. He denies any black tarry stool or any hematochezia or hematemesis. His major she has been increasing shortness of breath. Because of the shortness of breath and chest pain, Dr. Ramirez ultimately did a pulmonary embolus him workup, this culminated in a CT of the chest, which indicated no evidence of PE but it did indicate pneumonia as well as right pleural effusion. This history was reviewed with the patient and agree with this. On questioning today he denied any chest pain, shortness of breath. He looked comfortable. Past Medical History Cardiac Medical History: Reports: Coronary Artery Disease, Hypertension Neurological Medical History: Denies: Seizures Endocrine Medical History: Reports: Diabetes Mellitus Type 2 Past Surgical History Past Surgical History: Reports: Cardiac Catheterization, Coronary Artery Bypass Graft, Other - EGD, colonoscopy Social History Smoking Status: Former Smoker Last Time Smoked: 25 Frequency of Alcohol Use: None Hx Recreational Drug Use: No Drugs: None Hx Prescription Drug Abuse: No - Advance Directive Resuscitation Status: Full Code Family History Family History: Reviewed & Not Pertinent, CAD Parental Family History Reviewed: Yes Children Family History Reviewed: Yes Sibling(s) Family History Reviewed.: Yes - Family history of CAD but not premature Medication/Allergy Home Medications: Amlodipine Besylate [Norvasc 5 mg Tablet] 5 mg PO BID 09/30/16 Clopidogrel Bisulfate [Plavix] 75 mg PO DAILY 09/30/16 Colchicine [Colchicine 0.6 mg Tablet] 0.6 mg PO DAILY 09/30/16 Glipizide 5 mg PO BID 09/30/16 Isosorbide Mononitrate [Imdur 30 mg Tablet.er] 30 mg PO DAILY 09/30/16 Levetiracetam [Keppra Xr 500 Mg Tab.Sr] 500 mg PO DAILY 09/30/16 Metoprolol Tartrate [Lopressor] 100 mg PO BID 09/30/16 Nitroglycerin 4.9 gm TL ASDIR PRN 09/30/16 Pravastatin Sodium [Pravachol] 40 mg PO DAILY 09/30/16 Simvastatin [Zocor 10 mg Tablet] 10 mg PO DAILY 09/30/16 Allergies/Adverse Reactions: codeine [Codeine] Allergy (Verified 09/19/16 13:49) Review of Systems Review of Systems: Please see history of present illness and past medical history as wall. Constitutional: No fever or chills reported. Patient has noted generalized fatigue and tiredness. Head : No recent chronic headaches, recent head injury. Eyes: No recent eye pain, diplopia, redness, discharge, acute visual changes. Ears: No recent chronic ear pain, acute hearing loss, ear discharge. Oral cavity: No recent ulcerations, bleeding, oral cavity discomfort. Neck: No recent acute neck pain reported. Hematologic: No recent easy bruising or bleeding or hematologic malignancy reported. History of chronic anemia and iron deficiency. Lymphatic: No recent lymphatic malignancy, chronic lymphadenopathy reported yet Cardiovascular system review: See history of present illness. Respiratory system review: No recent chronic cough, hemoptysis, blood clots in the lungs reported. Mild Shortness of breath on exertion Gastrointestinal system review: Negative for any recent acute or chronic abdominal pain, hematemesis, melena, recent change in bowel habits. Genitourinary system review: No recent acute or chronic hematuria, flank pain, UTI etc. reported. Skin system review: Negative for any recent abnormal bruising, no rash, no pruritus reported. Neurologic: No prior history of strokes, mini strokes, seizure disorder. Psychologic: No history of major psychosis or depression reported. Musculoskeletal: Minor aches and pains reported. No acute joint swelling reported. Endocrine: No recent polyuria, polydipsia, recent heat or cold intolerance. Physical Exam Vital Signs: Temp Pulse Resp BP Pulse Ox 97.7 F 86 17 135/68 H 98 10/01/16 08:28 10/01/16 08:28 10/01/16 08:28 10/01/16 08:28 10/01/16 08:28 Intake & Output 09/30/16 10/01/16 10/02/16 06:59 06:59 06:59 Intake Total 5 Balance 5 Weight 84 kg Exam: GENERAL: well-nourished and in no acute distress. Alert and oriented x3 HEAD: Atraumatic, normocephalic. EYES: Pupils equal round and reactive to light, extraocular movements intact, sclera anicteric, conjunctiva are normal. ENT: TMs normal, nares patent, oropharynx clear without exudates. Moist mucous membranes. No oral ulcerations or bleeding gums noted NECK: supple without lymphadenopathy. Trachea is central. No cervical or axillary lymphadenopathy noted. Carotids are 2+, JVD WNL LUNGS: Respiration seems nonlabored, no significant accessory muscle action noted. Bibasal a fine crackles noted. No wheezes rales or rhonchi. Right basal minimal dullness noted. CHEST: Palpation of the chest wall shows no significant chest wall tenderness or abnormalities. HEART: Loving HEAD SILVERMAN, No PSH, 1/6 CHARLIE aortic area, 1/6 marks systolic murmur mitral area, no rubs, no gallops. ABDOMEN: Soft, no significant tenderness appreciated, normoactive bowel sounds. No guarding, no rebound. No rigidity noted . No masses appreciated. EXTREMITIES: Pedal pulses are 1-2+, no calf tenderness noted. No clubbing or cyanosis.trace to 1+ pedal edema noted NEUROLOGICAL: Focused neurological exam showed no significant neurologic deficit. Normal speech, no focal weakness appreciated. PSYCH: Normal mood, normal affect. Judgment and insight within normal limits. SKIN: No significant ecchymosis, rash, ulcerations or signs of pruritus noted. MUSCULOSKELETAL EXAM: No significant joint swelling noted. Results Laboratory Results: 09/30/16 13:46 10/01/16 06:05 09/30/16 09/30/16 09/30/16 13:46 13:46 13:46 WBC 7.0 RBC 3.88 L Hgb 8.9 L Hct 29.3 L MCV 76 L MCH 23.0 L MCHC 30.4 L RDW 19.7 H Plt Count 223 Seg Neutrophils % 77.6 Lymphocytes % 10.8 L Monocytes % 9.3 Eosinophils % 1.2 Basophils % 1.1 Absolute Neutrophils 5.5 Absolute Lymphocytes 0.8 Absolute Monocytes 0.7 Absolute Eosinophils 0.1 Absolute Basophils 0.1 Retic Count (auto) 2.32 Absolute Retic 0.090 Sodium 141.7 Potassium 4.5 Chloride 104 Carbon Dioxide 24 Anion Gap 14 BUN 30 H Creatinine 2.00 H Est GFR ( Amer) 39 L Est GFR (Non-Af Amer) 33 L Glucose 154 H Calcium 9.3 Magnesium Iron 21 L TIBC 386 % Saturation 5 Ferritin 10.40 L Total Bilirubin AST ALT Alkaline Phosphatase Total Protein Albumin Vitamin B12 > 1000.0 H Folate 19.80 10/01/16 06:05 WBC RBC Hgb Hct MCV MCH MCHC RDW Plt Count Seg Neutrophils % Lymphocytes % Monocytes % Eosinophils % Basophils % Absolute Neutrophils Absolute Lymphocytes Absolute Monocytes Absolute Eosinophils Absolute Basophils Retic Count (auto) Absolute Retic Sodium 141.2 Potassium 3.9 Chloride 103 Carbon Dioxide 22 Anion Gap 16 BUN 32 H Creatinine 2.11 H Est GFR ( Amer) 37 L Est GFR (Non-Af Amer) 31 L Glucose 115 H Calcium 9.1 Magnesium 1.1 L* Iron TIBC % Saturation Ferritin Total Bilirubin 0.9 AST 40 ALT 49 Alkaline Phosphatase 96 Total Protein 6.7 Albumin 3.1 L Vitamin B12 Folate 09/30/16 09/30/16 09/30/16 13:46 13:46 19:36 Creatine Kinase 184 H 162 CK-MB (CK-2) 2.83 Troponin I 0.037 NT-Pro-B Natriuret Pep 82413 H 09/30/16 10/01/16 10/01/16 19:36 01:25 01:25 Creatine Kinase 145 CK-MB (CK-2) 2.85 3.24 Troponin I 0.034 0.045 NT-Pro-B Natriuret Pep Impressions: Chest CT 09/30/16 00:00 IMPRESSION: Small right middle lobar fibrosis ; differential diagnosis includes early/small right middle lobar pneumonia. Moderate -large nonspecific right pleural effusion. Surveillance with contrast CT of the chest recommended within 7-12 weeks. Lung Scan[facility] 09/30/16 00:00 IMPRESSION: Matching airspace disease on chest x-ray with decreased perfusion and ventilation on nuclear medicine scan, triple match is a low probability scan for pulmonary embolus. Chest X-Ray 09/30/16 13:14 IMPRESSION: Right lower lobe airspace disease with small right pleural effusion Assessment & Plan - Diagnosis (1) Coronary artery disease Qualifiers: Coronary Disease-Associated Artery/Lesion type: unspecified vessel or lesion type Associated angina: angina presence unspecified Is this a current diagnosis for this admission?: YesPlan: CAD: Patient has CAD. Currently stable without any angina or angina equivalent symptoms. Discussed symptoms associated with unstable angina, acute coronary syndrome, myocardial infarction etc. patient to be educated in proper instruction for nitroglycerin use and proper use of emergency services. Aggressive risk factor modification advised. (2) Cardiomyopathy Qualifiers: Cardiomyopathy type: ischemic Qualified Code(s): I25.5 - Ischemic cardiomyopathy Is this a current diagnosis for this admission?: YesPlan: Currently stable. Patient medical regimen will be optimized. Patient to report any sustained palpitations, syncope, near syncope. (3) CHF (congestive heart failure) Qualifiers: Congestive heart failure type: combined Congestive heart failure chronicity: acute on chronic Qualified Code(s): I50.43 - Acute on chronic combined systolic (congestive) and diastolic (congestive) heart failure Is this a current diagnosis for this admission?: YesPlan: Most likely precipitated by volume overload, anemia. Recommend baseline diuretic therapy, PJ inhibitor/ARB, beta ag therapy., (4) Chronic kidney disease Qualifiers: Chronic kidney disease stage: stage 3 (moderate) Qualified Code(s): N18.3 - Chronic kidney disease, stage 3 (moderate) Is this a current diagnosis for this admission?: YesPlan: Creatinine has been stable. Continue current management plans (5) Anemia Qualifiers: Anemia type: iron deficiency Is this a current diagnosis for this admission?: YesPlan: Patient currently getting iron infusion. Observe for any occult bleed. (6) Hypomagnesemia Is this a current diagnosis for this admission?: YesPlan: Recommend replacement and being magnesium level above 1.6 mg/dL. (7) Pleural effusion Is this a current diagnosis for this admission?: YesPlan: Possibly related to CHF but cannot rule out parapneumonic or secondary to atelectasis or other causes. Patient is scheduled for thoracentesis. - Notes Notes: CODE STATUS was discussed, patient remains full code. Surrogate decision-maker unchanged. Multiple medical problems were addressed. - Time Time Spent: 30 to 50 Minutes - More than 50% of the time spent coordinating care , discussing management plans with involved caregivers. Management plans discussed with involved personnels. Medical decision making was of moderate complexity. Medications reviewed and adjusted accordingly: Yes
[2016-10-01] MEDS ORDERED: MAGNESIUM SULFATE 1 GM/D5W 100 ML IV SCH (12:15)
[2016-10-01] MEDS: INSULIN LISPRO 100 UNIT/ML 3 ML VIAL SUBCUT PRN (12:28)
[2016-10-01] MEDS ORDERED: MAGNESIUM SULFATE/D5W 1 GM/100 ML RTUPB IV ONE (15:00)
[2016-10-01] MEDS: CEFTRIAXONE 1 GM/D5W RTU 1 GM/50 ML RTUPB IV SCH (17:36)
[2016-10-01] MEDS ORDERED: NALOXONE HCL INJ/PF 0.4 MG/1 ML SDV ONE (17:39)
[2016-10-01] MEDS ORDERED: PROMETHAZINE HCL INJ 25 MG/1 ML VIAL ONE (17:39)
[2016-10-01] MEDS ORDERED: GLUCAGON,HUMAN RECOMB 1 MG INJ ONE (17:40)
[2016-10-01] MEDS ORDERED: EPINEPHRINE INJ 1 MG/10 ML DISP.SYRIN ONE (17:40)
[2016-10-01] MEDS ORDERED: FLUMAZENIL INJ 0.5 MG/5 ML VIAL IV ONE (17:40)
[2016-10-01] MEDS ORDERED: FENTANYL CITRATE INJ/PF 100 MCG/2 ML AMPUL ONE (17:40)
[2016-10-01] MEDS: MIDAZOLAM 2 MG/2 ML INJ ONE ×2 (18:40→18:44)
--- NOTE | 2016-10-01 19:11 | PDOC CONSULTATION ---
Consultation Consult Date: 09/30/16 History of Present Illness Admission Date/PCP: 09/30/16 13:06 RENUKA RAMIREZ MD History of Present Illness: This is a 76-year-old patient who was admitted on 09/30/2016 with shortness of breath and anemia. His admission hemoglobin was 8.2 and after 2 units of blood is up to 9.2. It appears patient has a chronic history of anemia. Review of his blood count showed a hemoglobin of 10.6 in July 2015, 10.1 in September 2015 and 9.5 in April 2016. His ferritin was 10 on this admission. He denies any black stools or bright red blood per rectum. I saw him in the hospital in July 2015 when he had an EGD that showed duodenal ulcer, grade D esophagitis and a hiatal hernia. According to the patient he has been taking reflux medication at home. He denies heartburn or abdominal pain Past Medical History Cardiac Medical History: Reports: Coronary Artery Disease, Hypertension Neurological Medical History: Denies: Seizures Endocrine Medical History: Reports: Diabetes Mellitus Type 2 GI Medical History: Reports: Gastroesophageal Reflux Disease, Peptic Ulcer Disease GI History Note: Grade D esophagitis, duodenal ulcer Past Surgical History Past Surgical History: Reports: Cardiac Catheterization, Coronary Artery Bypass Graft, Other - EGD 07/23, colonoscopy Social History Smoking Status: Former Smoker Last Time Smoked: 25 Frequency of Alcohol Use: None Hx Recreational Drug Use: No Drugs: None Hx Prescription Drug Abuse: No - Advance Directive Resuscitation Status: Full Code Family History Family History: Reviewed & Not Pertinent, CAD Parental Family History Reviewed: No Children Family History Reviewed: No Sibling(s) Family History Reviewed.: No Medication/Allergy Home Medications: Amlodipine Besylate [Norvasc 5 mg Tablet] 5 mg PO BID 09/30/16 Clopidogrel Bisulfate [Plavix] 75 mg PO DAILY 09/30/16 Colchicine [Colchicine 0.6 mg Tablet] 0.6 mg PO DAILY 09/30/16 Glipizide 5 mg PO BID 09/30/16 Isosorbide Mononitrate [Imdur 30 mg Tablet.er] 30 mg PO DAILY 09/30/16 Levetiracetam [Keppra Xr 500 Mg Tab.Sr] 500 mg PO DAILY 09/30/16 Metoprolol Tartrate [Lopressor] 100 mg PO BID 09/30/16 Nitroglycerin 4.9 gm TL ASDIR PRN 09/30/16 Pravastatin Sodium [Pravachol] 40 mg PO DAILY 09/30/16 Simvastatin [Zocor 10 mg Tablet] 10 mg PO DAILY 09/30/16 Allergies/Adverse Reactions: codeine [Codeine] Allergy (Verified 09/19/16 13:49) Review of Systems All systems: reviewed and no additional remarkable complaints except as stated Physical Exam Vital Signs: Temp Pulse Resp BP Pulse Ox 98.0 F 92 21 H 166/73 H 23 L 10/01/16 18:14 10/01/16 18:35 10/01/16 18:35 10/01/16 18:35 10/01/16 18:35 Intake & Output 09/30/16 10/01/16 10/02/16 06:59 06:59 06:59 Intake Total 5 1310 Balance 5 1310 Weight 84 kg Results Laboratory Results: 09/30/16 13:46 10/01/16 06:05 10/01/16 06:05 Sodium 141.2 Potassium 3.9 Chloride 103 Carbon Dioxide 22 Anion Gap 16 BUN 32 H Creatinine 2.11 H Est GFR ( Amer) 37 L Est GFR (Non-Af Amer) 31 L Glucose 115 H Calcium 9.1 Magnesium 1.1 L* Total Bilirubin 0.9 AST 40 ALT 49 Alkaline Phosphatase 96 Total Protein 6.7 Albumin 3.1 L 09/30/16 09/30/16 09/30/16 13:46 13:46 19:36 Creatine Kinase 184 H 162 CK-MB (CK-2) 2.83 Troponin I 0.037 NT-Pro-B Natriuret Pep 03408 H 09/30/16 10/01/16 10/01/16 19:36 01:25 01:25 Creatine Kinase 145 CK-MB (CK-2) 2.85 3.24 Troponin I 0.034 0.045 NT-Pro-B Natriuret Pep Impressions: Chest CT 09/30/16 00:00 IMPRESSION: Small right middle lobar fibrosis ; differential diagnosis includes early/small right middle lobar pneumonia. Moderate -large nonspecific right pleural effusion. Surveillance with contrast CT of the chest recommended within 7-12 weeks. Lung Scan-[facility] 09/30/16 00:00 IMPRESSION: Matching airspace disease on chest x-ray with decreased perfusion and ventilation on nuclear medicine scan, triple match is a low probability scan for pulmonary embolus. Chest X-Ray 09/30/16 13:14 IMPRESSION: Right lower lobe airspace disease with small right pleural effusion Assessment & Plan - Diagnosis (1) Iron deficiency anemia secondary to blood loss (chronic) Is this a current diagnosis for this admission?: YesPlan: The etiology for his iron deficiency anemia is unclear. I suspect he has anemia of chronic disease in addition to iron deficiency. He will undergo an EGD and a colonoscopy. He may require capsule endoscopy of his small bowel. He would need to start iron supplements (2) Gastroesophageal reflux disease with esophagitis Is this a current diagnosis for this admission?: YesPlan: He had severe esophagitis about a year ago and should be on a PPI indefinitely. EGD will help rule out Devlin's esophagus (3) Cardiomyopathy Qualifiers: Cardiomyopathy type: ischemic Qualified Code(s): I25.5 - Ischemic cardiomyopathy Is this a current diagnosis for this admission?: Yes (4) Chronic kidney disease Qualifiers: Chronic kidney disease stage: stage 3 (moderate) Qualified Code(s): N18.3 - Chronic kidney disease, stage 3 (moderate) Is this a current diagnosis for this admission?: Yes (5) Coronary artery disease Qualifiers: Coronary Disease-Associated Artery/Lesion type: unspecified vessel or lesion type Associated angina: angina presence unspecified Is this a current diagnosis for this admission?: Yes
--- NOTE | 2016-10-01 19:15 | Operative Report ---
Operative Report DATE OF SURGERY: 10/01/16 Operative Report: Pre-op diagnosis: Iron deficiency anemia Post-op diagnosis: 1. Possible Devlin's esophagus 2. Rectal polyp 3. Limited view of the colon 4. Hiatal hernia Surgery: Upper endoscopy with biopsy, Colonoscopy with polypectomy Medications: Versed 2 mg, Fentanyl 50 mcg IV push Tissue removed: Esophageal biopsies and rectal polyp Procedure: After informed consent obtained from patient, patient's pharynx was sprayed with Hurricane and conscious sedation was achieved. The upper endoscope was then inserted into the esophagus under direct vision and advanced into the stomach and further into the duodenum. Detailed examination of the duodenum, stomach and the esophagus was then performed. A digital rectal examination was performed and this was unremarkable. The colonoscope was inserted into the rectum and advanced to the ascending colon. View of the colon was limited due to retained stool. The endoscope was retroflexed in the rectum. Patient tolerated the procedure well. Findings Esophagus: 6 cm columnar epithelium noted in the distal esophagus just above a 3 cm hiatal hernia. There was no erosive esophagitis. Biopsies were taken from 2 levels Stomach: Normal Duodenum: Normal Terminal ileum: Not intubated Cecum: Not seen Ascending colon: Limited view Transverse colon: Limited view Descending colon: Limited view Sigmoid colon: Limited view Rectum: 6 mm polyp removed with the cold polypectomy snare Plan: Continue PPI and repeat colonoscopy as outpatient OPERATION: .
[2016-10-02 07:36] LABS: ALANINE AMINOTRANSFERASE 44 U/L (21-72); ALBUMIN 3.1 g/dL (3.5-5.0); ALKALINE PHOSPHATASE 103 U/L (38-126); ANION GAP 16 (5-19); ASPARTATE AMINO TRANSFERASE 40 U/L (17-59); BLOOD UREA NITROGEN 24 mg/dL (7-20); CALCIUM 9.2 mg/dL (8.4-10.2); CARBON DIOXIDE 24 mmol/L (22-30); CHLORIDE 101 mmol/L (98-107); GLUCOSE 106 mg/dL (75-110); MAGNESIUM 1.7 mg/dL (1.6-2.3); POTASSIUM 3.9 mmol/L (3.6-5.0); SODIUM 141.3 mmol/L (137-145); TOTAL PROTEIN 6.7 g/dL (6.3-8.2)
--- NOTE | 2016-10-02 08:24 | PDOC PROGRESS REPORT ---
Subjective Progress Note for:: 10/02/16 Subjective:: No acute events overnight, shortness of breath is a little bit better Physical Exam Vital Signs: Temp Pulse Resp BP Pulse Ox 97.5 F 95 15 146/71 H 96 10/02/16 08:15 10/02/16 08:15 10/02/16 08:15 10/02/16 08:15 10/02/16 08:15 Intake & Output 10/01/16 10/02/16 10/03/16 06:59 06:59 06:59 Intake Total 5 1310 Output Total 400 Balance 5 910 Weight 84 kg 84 kg General appearance: PRESENT: no acute distress, well-developed, well-nourished Head exam: PRESENT: atraumatic, normocephalic Eye exam: PRESENT: conjunctiva pink, EOMI, PERRLA. ABSENT: scleral icterus Ear exam: PRESENT: normal external ear exam Mouth exam: PRESENT: moist, tongue midline Neck exam: ABSENT: carotid bruit, JVD, lymphadenopathy, thyromegaly Respiratory exam: PRESENT: clear to auscultation marjorie. ABSENT: rales, rhonchi, wheezes Cardiovascular exam: PRESENT: RRR. ABSENT: diastolic murmur, rubs, systolic murmur Pulses: PRESENT: normal dorsalis pedis pul Vascular exam: PRESENT: normal capillary refill GI/Abdominal exam: PRESENT: normal bowel sounds, soft. ABSENT: distended, guarding, mass, organolmegaly, rebound, tenderness Rectal exam: PRESENT: deferred Extremities exam: PRESENT: full ROM. ABSENT: calf tenderness, clubbing, pedal edema Neurological exam: PRESENT: alert, awake, oriented to person, oriented to place , oriented to time, oriented to situation, CN II-XII grossly intact. ABSENT: motor sensory deficit Psychiatric exam: PRESENT: appropriate affect, normal mood. ABSENT: homicidal ideation, suicidal ideation Skin exam: PRESENT: dry, intact, warm. ABSENT: cyanosis, rash Results Laboratory Results: 09/30/16 13:46 10/02/16 06:11 09/30/16 10/02/16 13:46 06:11 Sodium 141.3 Potassium 3.9 Chloride 101 Carbon Dioxide 24 Anion Gap 16 BUN 24 H Creatinine 1.90 H Est GFR ( Amer) 42 L Est GFR (Non-Af Amer) 35 L Glucose 106 Calcium 9.2 Magnesium 1.7 Transferrin 377 H Total Bilirubin 1.0 AST 40 ALT 44 Alkaline Phosphatase 103 Total Protein 6.7 Albumin 3.1 L 09/30/16 09/30/16 09/30/16 13:46 13:46 19:36 Creatine Kinase 184 H 162 CK-MB (CK-2) 2.83 Troponin I 0.037 NT-Pro-B Natriuret Pep [id number] H 09/30/16 10/01/16 10/01/16 19:36 01:25 01:25 Creatine Kinase 145 CK-MB (CK-2) 2.85 3.24 Troponin I 0.034 0.045 NT-Pro-B Natriuret Pep Impressions: Chest CT 09/30/16 00:00 IMPRESSION: Small right middle lobar fibrosis ; differential diagnosis includes early/small right middle lobar pneumonia. Moderate -large nonspecific right pleural effusion. Surveillance with contrast CT of the chest recommended within 7-12 weeks. Lung Scan-[facility] 09/30/16 00:00 IMPRESSION: Matching airspace disease on chest x-ray with decreased perfusion and ventilation on nuclear medicine scan, triple match is a low probability scan for pulmonary embolus. Chest X-Ray 09/30/16 13:14 IMPRESSION: Right lower lobe airspace disease with small right pleural effusion Assessment & Plan - Diagnosis (1) Iron deficiency anemia secondary to blood loss (chronic) Is this a current diagnosis for this admission?: YesPlan: Ferriheme 1 dose given yesterday, he would benefit from repeat hemoglobin today , will follow. (2) Pleural effusion Is this a current diagnosis for this admission?: YesPlan: He has not had thoracentesis as of yet, apparently radiology wants to wait 7 days because he has taken Plavix. - Time Time Spent with patient: 15-24 minutes Critical Time spent with patient: 15-24 minutes - Inpatient Certification Based on my medical assessment, after consideration of the patient's comorbidities, presenting symptoms, or acuity I expect that the services needed warrant INPATIENT care.: Yes I certify that my determination is in accordance with my understanding of Medicare's requirements for reasonable and necessary INPATIENT services [42 CFR 412.3e].: Yes Medical Necessity: Risk of Complication if Not Cared For in Hospital
--- NOTE | 2016-10-02 08:32 | PDOC PROGRESS REPORT ---
Subjective Progress Note for:: 10/02/16 Subjective:: Patient is still complaining of shortness of the breath on and off patient have endoscopy and colonoscopy done yesterday is nothing acute finding patient's hemoglobin is still low. Unfortunately on Plavix and unable to get the thoracocentesis until the Friday. Patient's denied any chest pain denied any shortness of the bed while resting. No congestion patient's Physical Exam Vital Signs: Temp Pulse Resp BP Pulse Ox 97.5 F 95 15 146/71 H 96 10/02/16 08:15 10/02/16 08:15 10/02/16 08:15 10/02/16 08:15 10/02/16 08:15 Intake & Output 10/01/16 10/02/16 10/03/16 06:59 06:59 06:59 Intake Total 5 1310 Output Total 400 Balance 5 910 Weight 84 kg 84 kg General appearance: PRESENT: no acute distress Head exam: PRESENT: normocephalic Mouth exam: PRESENT: neck supple Respiratory exam: PRESENT: clear to auscultation marjorie Cardiovascular exam: PRESENT: +S1, +S2 GI/Abdominal exam: PRESENT: normal bowel sounds, soft. ABSENT: tenderness Extremities exam: ABSENT: pedal edema Neurological exam: PRESENT: alert, awake, oriented to person, oriented to place Psychiatric exam: PRESENT: anxious Skin exam: PRESENT: dry Results Laboratory Results: 09/30/16 13:46 10/02/16 06:11 09/30/16 10/02/16 13:46 06:11 Sodium 141.3 Potassium 3.9 Chloride 101 Carbon Dioxide 24 Anion Gap 16 BUN 24 H Creatinine 1.90 H Est GFR ( Amer) 42 L Est GFR (Non-Af Amer) 35 L Glucose 106 Calcium 9.2 Magnesium 1.7 Transferrin 377 H Total Bilirubin 1.0 AST 40 ALT 44 Alkaline Phosphatase 103 Total Protein 6.7 Albumin 3.1 L 09/30/16 09/30/16 09/30/16 13:46 13:46 19:36 Creatine Kinase 184 H 162 CK-MB (CK-2) 2.83 Troponin I 0.037 NT-Pro-B Natriuret Pep 72279 H 09/30/16 10/01/16 10/01/16 19:36 01:25 01:25 Creatine Kinase 145 CK-MB (CK-2) 2.85 3.24 Troponin I 0.034 0.045 NT-Pro-B Natriuret Pep Impressions: Chest CT 09/30/16 00:00 IMPRESSION: Small right middle lobar fibrosis ; differential diagnosis includes early/small right middle lobar pneumonia. Moderate -large nonspecific right pleural effusion. Surveillance with contrast CT of the chest recommended within 7-12 weeks. Lung Scan-VQ NM 09/30/16 00:00 IMPRESSION: Matching airspace disease on chest x-ray with decreased perfusion and ventilation on nuclear medicine scan, triple match is a low probability scan for pulmonary embolus. Chest X-Ray 09/30/16 13:14 IMPRESSION: Right lower lobe airspace disease with small right pleural effusion Assessment & Plan - Diagnosis (1) Shortness of breath Is this a current diagnosis for this admission?: YesPlan: Continuous IV antibiotics and IV Lasix will repeat the chest x-ray (2) CHF (congestive heart failure) Qualifiers: Congestive heart failure type: combined Congestive heart failure chronicity: acute on chronic Qualified Code(s): I50.43 - Acute on chronic combined systolic (congestive) and diastolic (congestive) heart failure Is this a current diagnosis for this admission?: YesPlan: Continues the current IV Lasix follow with the cardiology (3) Cardiomyopathy Qualifiers: Cardiomyopathy type: ischemic Qualified Code(s): I25.5 - Ischemic cardiomyopathy Is this a current diagnosis for this admission?: YesPlan: Continues the current medications (4) Chronic kidney disease Qualifiers: Chronic kidney disease stage: stage 3 (moderate) Qualified Code(s): N18.3 - Chronic kidney disease, stage 3 (moderate) Is this a current diagnosis for this admission?: YesPlan: Stable (5) Coronary artery disease Qualifiers: Coronary Disease-Associated Artery/Lesion type: unspecified vessel or lesion type Associated angina: angina presence unspecified Is this a current diagnosis for this admission?: YesPlan: No acute finding (6) Gastroesophageal reflux disease with esophagitis Is this a current diagnosis for this admission?: Yes (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
[2016-10-02 08:40] LABS: ABSOLUTE BASOPHILS # (AUTO) 0.1 10^3/uL (0.0-0.2); ABSOLUTE EOSINOPHILS # (AUTO) 0.3 10^3/uL (0.0-0.6); ABSOLUTE LYMPHOCYTES (AUTO) 0.6 10^3/uL (0.5-4.7); ABSOLUTE MONOCYTES (AUTO) 0.8 10^3/uL (0.1-1.4); ABSOLUTE NEUT (AUTO) 5.2 10^3/uL (1.7-8.2); BASOPHILS % (AUTO) 1.4 % (0-2); EOSINOPHILS % (AUTO) 3.7 % (0-6); HEMATOCRIT 28.4 % (37.9-51.0); HEMOGLOBIN 8.3 g/dL (13.5-17.0); HGB HCT DIFFERENCE -3.5; LYMPHOCYTES % (AUTO) 8.9 % (13-45); MEAN CORPUSCULAR HEMOGLOBIN 22.5 pg (27.0-33.4); MEAN CORPUSCULAR HGB CONC 29.4 g/dL (32.0-36.0); MEAN CORPUSCULAR VOLUME 77 fl (80-97); MONOCYTES % (AUTO) 11.7 % (3-13); RED CELL DISTRIBUTION WIDTH 19.8 % (11.5-14.0); SEGMENTED NEUTROPHILS % (AUTO) 74.3 % (42-78); WHITE BLOOD COUNT 6.9 10^3/uL (4.0-10.5)
[2016-10-02] MEDS: LANSOPRAZOLE 30 MG TAB.RAP.DR PO SCH (09:16)
[2016-10-02] MEDS: AZITHROMYCIN 250 MG TABLET PO SCH (09:16)
[2016-10-02] MEDS: FUROSEMIDE INJ/PF 20 MG/2 ML SDV IV SCH (09:17)
--- NOTE | 2016-10-02 12:46 | PDOC PROGRESS REPORT ---
Subjective Progress Note for:: 10/02/16 Subjective:: Patient seems to be doing better with gradual improvement. Patient feels very fatigued and tired. He has some shortness of breath on exertion. Pt is denying any chest arm or neck discomfort. Patient denying any PND, orthopnea. Patient denied any sustained palpitations, dizziness, syncope, near syncope. Patient denying any fever chills. Patient denying any other significant discomfort. Patient is maintaining sinus rhythm. Review of systems: Rest review of systems negative. Medications: Medications have been reviewed. Physical Exam Vital Signs: Temp Pulse Resp BP Pulse Ox 97.8 F 94 17 137/64 H 98 10/02/16 08:31 10/02/16 08:31 10/02/16 08:31 10/02/16 08:31 10/02/16 08:31 Intake & Output 10/01/16 10/02/16 10/03/16 06:59 06:59 06:59 Intake Total 5 1310 Output Total 400 Balance 5 910 Weight 84 kg 84 kg Exam: GENERAL: well-nourished and in no acute distress. Alert and oriented x3 HEAD: Atraumatic, normocephalic. EYES: Pupils equal round and reactive to light, extraocular movements intact, sclera anicteric, conjunctiva are normal. ENT: TMs normal, nares patent, oropharynx clear without exudates. Moist mucous membranes. No oral ulcerations or bleeding gums noted NECK: supple without lymphadenopathy. Trachea is central. No cervical or axillary lymphadenopathy noted. Carotids are 2+, JVD WNL LUNGS: Respiration seems nonlabored, no significant accessory muscle action noted. Bibasal a fine crackles noted. No wheezes rales or rhonchi. Right basal minimal dullness noted. CHEST: Palpation of the chest wall shows no significant chest wall tenderness or abnormalities. HEART: [place] [employer], No PSH, 1/6 CHARLIE aortic area, 1/6 marks systolic murmur mitral area, no rubs, no gallops. ABDOMEN: Soft, no significant tenderness appreciated, normoactive bowel sounds. No guarding, no rebound. No rigidity noted . No masses appreciated. EXTREMITIES: Pedal pulses are 1-2+, no calf tenderness noted. No clubbing or cyanosis.trace to 1+ pedal edema noted NEUROLOGICAL: Focused neurological exam showed no significant neurologic deficit. Normal speech, no focal weakness appreciated. PSYCH: Normal mood, normal affect. Judgment and insight within normal limits. SKIN: No significant ecchymosis, rash, ulcerations or signs of pruritus noted. MUSCULOSKELETAL EXAM: No significant joint swelling noted. Results Laboratory Results: 10/02/16 06:11 10/02/16 06:11 09/30/16 10/02/16 10/02/16 13:46 06:11 06:11 WBC 6.9 RBC 3.70 L Hgb 8.3 L Hct 28.4 L MCV 77 L MCH 22.5 L MCHC 29.4 L RDW 19.8 H Plt Count 191 Seg Neutrophils % 74.3 Lymphocytes % 8.9 L Monocytes % 11.7 Eosinophils % 3.7 Basophils % 1.4 Absolute Neutrophils 5.2 Absolute Lymphocytes 0.6 Absolute Monocytes 0.8 Absolute Eosinophils 0.3 Absolute Basophils 0.1 Sodium 141.3 Potassium 3.9 Chloride 101 Carbon Dioxide 24 Anion Gap 16 BUN 24 H Creatinine 1.90 H Est GFR ( Amer) 42 L Est GFR (Non-Af Amer) 35 L Glucose 106 Calcium 9.2 Magnesium 1.7 Transferrin 377 H Total Bilirubin 1.0 AST 40 ALT 44 Alkaline Phosphatase 103 Total Protein 6.7 Albumin 3.1 L 09/30/16 09/30/16 09/30/16 13:46 13:46 19:36 Creatine Kinase 184 H 162 CK-MB (CK-2) 2.83 Troponin I 0.037 NT-Pro-B Natriuret Pep 98390 H 09/30/16 10/01/16 10/01/16 19:36 01:25 01:25 Creatine Kinase 145 CK-MB (CK-2) 2.85 3.24 Troponin I 0.034 0.045 NT-Pro-B Natriuret Pep Impressions: Chest CT 09/30/16 00:00 IMPRESSION: Small right middle lobar fibrosis ; differential diagnosis includes early/small right middle lobar pneumonia. Moderate -large nonspecific right pleural effusion. Surveillance with contrast CT of the chest recommended within 7-12 weeks. Lung Scan-VQ CT 09/30/16 00:00 IMPRESSION: Matching airspace disease on chest x-ray with decreased perfusion and ventilation on nuclear medicine scan, triple match is a low probability scan for pulmonary embolus. Chest X-Ray 10/02/16 00:00 IMPRESSION: No significant interval change. Findings as noted above. Assessment & Plan - Diagnosis (1) Coronary artery disease Qualifiers: Coronary Disease-Associated Artery/Lesion type: unspecified vessel or lesion type Associated angina: angina presence unspecified Is this a current diagnosis for this admission?: Yes (2) Cardiomyopathy Qualifiers: Cardiomyopathy type: ischemic Qualified Code(s): I25.5 - Ischemic cardiomyopathy Is this a current diagnosis for this admission?: Yes (3) CHF (congestive heart failure) Qualifiers: Congestive heart failure type: combined Congestive heart failure chronicity: acute on chronic Qualified Code(s): I50.43 - Acute on chronic combined systolic (congestive) and diastolic (congestive) heart failure Is this a current diagnosis for this admission?: Yes (4) Chronic kidney disease Qualifiers: Chronic kidney disease stage: stage 3 (moderate) Qualified Code(s): N18.3 - Chronic kidney disease, stage 3 (moderate) Is this a current diagnosis for this admission?: Yes (5) Anemia Qualifiers: Anemia type: iron deficiency Is this a current diagnosis for this admission?: Yes (6) Hypomagnesemia Is this a current diagnosis for this admission?: Yes (7) Pleural effusion Is this a current diagnosis for this admission?: Yes - Notes Notes: Coronary artery disease: Symptomatically stable. Cardiomyopathy: Patient seems to have mild volume overload with CHF finding on chest x-ray. Congestive heart failure: Continue diuretic therapy. Chronic kidney disease: Currently stable. Anemia: Patient is status post IM transfusion. Hemoglobin has been stable. Hypomagnesemia: This was replaced yesterday. Magnesium level reported at 1.7. Right pleural effusion: Possibly parapneumonic possibly related to CHF. Will recommend a repeat CT chest or ultrasound-guided thoracentesis. - Time Time with patient: 15-25 minutes - CODE STATUS was discussed, patient remains full code. Surrogate decision-maker unchanged. Multiple medical problems were addressed.More than 50% of the time spent coordinating care, discussing management plans with involved caregivers. Management plans discussed with involved personnels. Medical decision making was of moderate complexity.
[2016-10-02] MEDS: INSULIN LISPRO 100 UNIT/ML 3 ML VIAL SUBCUT PRN (17:37)
[2016-10-02] MEDS: CEFTRIAXONE 1 GM/D5W RTU 1 GM/50 ML RTUPB IV SCH (17:38)
--- NOTE | 2016-10-03 08:21 | PDOC PROGRESS REPORT ---
Subjective Progress Note for:: 10/03/16 Subjective:: Pt doing much better today, feeling better Physical Exam Vital Signs: Temp Pulse Resp BP Pulse Ox 97.7 F 93 18 126/56 H 97 10/03/16 05:10 10/03/16 05:10 10/03/16 05:10 10/03/16 05:10 10/03/16 05:10 Intake & Output 10/02/16 10/03/16 10/04/16 06:59 06:59 06:59 Intake Total 1310 1148 Output Total 400 Balance 910 1148 Weight 84 kg 80.3 kg General appearance: PRESENT: no acute distress, well-developed, well-nourished Head exam: PRESENT: atraumatic, normocephalic Eye exam: PRESENT: conjunctiva pink, EOMI, PERRLA. ABSENT: scleral icterus Ear exam: PRESENT: normal external ear exam Mouth exam: PRESENT: moist, tongue midline Neck exam: ABSENT: carotid bruit, JVD, lymphadenopathy, thyromegaly Respiratory exam: PRESENT: clear to auscultation marjorie. ABSENT: rales, rhonchi, wheezes Cardiovascular exam: PRESENT: RRR. ABSENT: diastolic murmur, rubs, systolic murmur Pulses: PRESENT: normal dorsalis pedis pul Vascular exam: PRESENT: normal capillary refill GI/Abdominal exam: PRESENT: normal bowel sounds, soft. ABSENT: distended, guarding, mass, organolmegaly, rebound, tenderness Rectal exam: PRESENT: deferred Extremities exam: PRESENT: full ROM. ABSENT: calf tenderness, clubbing, pedal edema Neurological exam: PRESENT: alert, awake, oriented to person, oriented to place , oriented to time, oriented to situation, CN II-XII grossly intact. ABSENT: motor sensory deficit Psychiatric exam: PRESENT: appropriate affect, normal mood. ABSENT: homicidal ideation, suicidal ideation Skin exam: PRESENT: dry, intact, warm. ABSENT: cyanosis, rash Results Laboratory Results: 10/02/16 06:11 10/02/16 06:11 10/02/16 06:11 WBC 6.9 RBC 3.70 L Hgb 8.3 L Hct 28.4 L MCV 77 L MCH 22.5 L MCHC 29.4 L RDW 19.8 H Plt Count 191 Seg Neutrophils % 74.3 Lymphocytes % 8.9 L Monocytes % 11.7 Eosinophils % 3.7 Basophils % 1.4 Absolute Neutrophils 5.2 Absolute Lymphocytes 0.6 Absolute Monocytes 0.8 Absolute Eosinophils 0.3 Absolute Basophils 0.1 09/30/16 09/30/16 09/30/16 13:46 13:46 19:36 Creatine Kinase 184 H 162 CK-MB (CK-2) 2.83 Troponin I 0.037 NT-Pro-B Natriuret Pep 10237 H 09/30/16 10/01/16 10/01/16 19:36 01:25 01:25 Creatine Kinase 145 CK-MB (CK-2) 2.85 3.24 Troponin I 0.034 0.045 NT-Pro-B Natriuret Pep Impressions: Chest CT 09/30/16 00:00 IMPRESSION: Small right middle lobar fibrosis ; differential diagnosis includes early/small right middle lobar pneumonia. Moderate -large nonspecific right pleural effusion. Surveillance with contrast CT of the chest recommended within 7-12 weeks. Lung Scan-VQ NM 09/30/16 00:00 IMPRESSION: Matching airspace disease on chest x-ray with decreased perfusion and ventilation on nuclear medicine scan, triple match is a low probability scan for pulmonary embolus. Chest X-Ray 10/02/16 00:00 IMPRESSION: No significant interval change. Findings as noted above. Assessment & Plan - Diagnosis (1) Iron deficiency anemia secondary to blood loss (chronic) Is this a current diagnosis for this admission?: YesPlan: Hb 8.3, plan for another dose of IV iron tomorrow. Hold on PRBC transfusion for now since most likely cause of pleural effusion thus far seems related to CHF exacerbation and don't want to overload pt at present. (2) Pleural effusion Is this a current diagnosis for this admission?: YesPlan: Seems clinically improved, plan home 02 eval, if not needed then may not need to pursue thoracentesis now, will plan to repeat u/s chest to check on effusion tomorrow. Most likely to be transudative in nature 2nd CHF. discussed extensively w/ Dr. Aguilar and Dr. Rivera from radiology, today spent 40min in coordination of care and discussion w/ pt. - Time Time Spent with patient: 35 or more minutes Critical Time spent with patient: 35 or more minutes - Inpatient Certification Based on my medical assessment, after consideration of the patient's comorbidities, presenting symptoms, or acuity I expect that the services needed warrant INPATIENT care.: Yes I certify that my determination is in accordance with my understanding of Medicare's requirements for reasonable and necessary INPATIENT services [42 CFR 412.3e].: Yes Medical Necessity: Failure to Improve With Outpatient Therapy, Need For Continuous Telemetry Monitoring, Risk of Complication if Not Cared For in Hospital
[2016-10-03] MEDS: FUROSEMIDE INJ/PF 20 MG/2 ML SDV IV SCH (10:19)
[2016-10-03] MEDS: LANSOPRAZOLE 30 MG TAB.RAP.DR PO SCH (10:19)
[2016-10-03] MEDS: AZITHROMYCIN 250 MG TABLET PO SCH (10:19)
[2016-10-03 13:21] LABS: MAGNESIUM 1.8 mg/dL (1.6-2.3); POTASSIUM 4.1 mmol/L (3.6-5.0)
[2016-10-03] MEDS: CEFTRIAXONE 1 GM/D5W RTU 1 GM/50 ML RTUPB IV SCH (17:24)
--- NOTE | 2016-10-03 17:46 | PDOC PROGRESS REPORT ---
Subjective Progress Note for:: 10/03/16 Subjective:: pt is doing well still need o2 when he walk but better no chest pain no sob Physical Exam Vital Signs: Temp Pulse Resp BP Pulse Ox 97.8 F 95 18 119/63 95 10/03/16 16:48 10/03/16 16:48 10/03/16 16:48 10/03/16 16:48 10/03/16 16:48 Intake & Output 10/02/16 10/03/16 10/04/16 06:59 06:59 06:59 Intake Total 1310 1148 581 Output Total 400 3 Balance 910 1148 578 Weight 84 kg 80.3 kg General appearance: PRESENT: no acute distress Head exam: PRESENT: normocephalic Eye exam: PRESENT: PERRLA Mouth exam: PRESENT: neck supple Respiratory exam: PRESENT: clear to auscultation marjorie Cardiovascular exam: PRESENT: +S1, +S2 GI/Abdominal exam: PRESENT: normal bowel sounds, soft. ABSENT: tenderness Extremities exam: ABSENT: pedal edema Neurological exam: PRESENT: alert, awake, oriented to person, oriented to place Psychiatric exam: PRESENT: anxious Skin exam: PRESENT: dry Results Laboratory Results: 10/02/16 06:11 10/03/16 12:44 10/03/16 12:44 Potassium 4.1 Magnesium 1.8 09/30/16 09/30/16 09/30/16 13:46 13:46 19:36 Creatine Kinase 184 H 162 CK-MB (CK-2) 2.83 Troponin I 0.037 NT-Pro-B Natriuret Pep 13242 H 09/30/16 10/01/16 10/01/16 19:36 01:25 01:25 Creatine Kinase 145 CK-MB (CK-2) 2.85 3.24 Troponin I 0.034 0.045 NT-Pro-B Natriuret Pep Impressions: Chest CT 09/30/16 00:00 IMPRESSION: Small right middle lobar fibrosis ; differential diagnosis includes early/small right middle lobar pneumonia. Moderate -large nonspecific right pleural effusion. Surveillance with contrast CT of the chest recommended within 7-12 weeks. Lung Scan-VQ NM 09/30/16 00:00 IMPRESSION: Matching airspace disease on chest x-ray with decreased perfusion and ventilation on nuclear medicine scan, triple match is a low probability scan for pulmonary embolus. Chest X-Ray 10/02/16 00:00 IMPRESSION: No significant interval change. Findings as noted above. Assessment & Plan - Diagnosis (1) Shortness of breath Is this a current diagnosis for this admission?: YesPlan: all improving will get o2 at home (2) CHF (congestive heart failure) Qualifiers: Congestive heart failure type: combined Congestive heart failure chronicity: acute on chronic Qualified Code(s): I50.43 - Acute on chronic combined systolic (congestive) and diastolic (congestive) heart failure Is this a current diagnosis for this admission?: YesPlan: cont lasix f/u cardilogy (3) Cardiomyopathy Qualifiers: Cardiomyopathy type: ischemic Qualified Code(s): I25.5 - Ischemic cardiomyopathy Is this a current diagnosis for this admission?: YesPlan: Continues the current medications (4) Chronic kidney disease Qualifiers: Chronic kidney disease stage: stage 3 (moderate) Qualified Code(s): N18.3 - Chronic kidney disease, stage 3 (moderate) Is this a current diagnosis for this admission?: YesPlan: all stable (5) Coronary artery disease Qualifiers: Coronary Disease-Associated Artery/Lesion type: unspecified vessel or lesion type Associated angina: angina presence unspecified Is this a current diagnosis for this admission?: YesPlan: No acute finding (6) Gastroesophageal reflux disease with esophagitis Is this a current diagnosis for this admission?: YesPlan: stable (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
--- NOTE | 2016-10-03 20:04 | PDOC PROGRESS REPORT ---
Subjective Progress Note for:: 10/03/16 Subjective:: Patient seems to be doing better with gradual improvement. Patient feels very fatigued and tired but claims this has improved. He has some shortness of breath on exertion. Pt is denying any chest arm or neck discomfort. Patient denying any PND, orthopnea. Patient denied any sustained palpitations, dizziness, syncope, near syncope. Patient denying any fever chills. Patient denying any other significant discomfort. Patient is maintaining sinus rhythm. Review of systems: Rest review of systems negative. Medications: Medications have been reviewed. Physical Exam Vital Signs: Temp Pulse Resp BP Pulse Ox 97.8 F 95 18 119/63 95 10/03/16 16:48 10/03/16 16:48 10/03/16 16:48 10/03/16 16:48 10/03/16 16:48 Intake & Output 10/02/16 10/03/16 10/04/16 06:59 06:59 06:59 Intake Total 1310 1148 641 Output Total 400 3 Balance 910 1148 638 Weight 84 kg 80.3 kg Exam: GENERAL: well-nourished and in no acute distress. Alert and oriented x3 HEAD: Atraumatic, normocephalic. EYES: Pupils equal round and reactive to light, extraocular movements intact, sclera anicteric, conjunctiva are normal. ENT: TMs normal, nares patent, oropharynx clear without exudates. Moist mucous membranes. No oral ulcerations or bleeding gums noted NECK: supple without lymphadenopathy. Trachea is central. No cervical or axillary lymphadenopathy noted. Carotids are 2+, JVD WNL LUNGS: Respiration seems nonlabored, no significant accessory muscle action noted. Bibasal a fine crackles noted. No wheezes rales or rhonchi. Right basal minimal dullness noted. CHEST: Palpation of the chest wall shows no significant chest wall tenderness or abnormalities. 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 ABDOMEN: Soft, no significant tenderness appreciated, normoactive bowel sounds. No guarding, no rebound. No rigidity noted . No masses appreciated. EXTREMITIES: Pedal pulses are 1-2+, no calf tenderness noted. No clubbing or cyanosis.trace to 1+ pedal edema noted NEUROLOGICAL: Focused neurological exam showed no significant neurologic deficit. Normal speech, no focal weakness appreciated. PSYCH: Normal mood, normal affect. Judgment and insight within normal limits. SKIN: No significant ecchymosis, rash, ulcerations or signs of pruritus noted. MUSCULOSKELETAL EXAM: No significant joint swelling noted. Results Laboratory Results: 10/02/16 06:11 10/03/16 12:44 10/03/16 12:44 Potassium 4.1 Magnesium 1.8 09/30/16 09/30/16 09/30/16 13:46 13:46 19:36 Creatine Kinase 184 H 162 CK-MB (CK-2) 2.83 Troponin I 0.037 NT-Pro-B Natriuret Pep [id number] H 09/30/16 10/01/16 10/01/16 19:36 01:25 01:25 Creatine Kinase 145 CK-MB (CK-2) 2.85 3.24 Troponin I 0.034 0.045 NT-Pro-B Natriuret Pep Impressions: Chest CT 09/30/16 00:00 IMPRESSION: Small right middle lobar fibrosis ; differential diagnosis includes early/small right middle lobar pneumonia. Moderate -large nonspecific right pleural effusion. Surveillance with contrast CT of the chest recommended within 7-12 weeks. Lung Scan-[facility] 09/30/16 00:00 IMPRESSION: Matching airspace disease on chest x-ray with decreased perfusion and ventilation on nuclear medicine scan, triple match is a low probability scan for pulmonary embolus. Chest X-Ray 10/02/16 00:00 IMPRESSION: No significant interval change. Findings as noted above. Assessment & Plan - Diagnosis (1) Coronary artery disease Qualifiers: Coronary Disease-Associated Artery/Lesion type: unspecified vessel or lesion type Associated angina: angina presence unspecified Is this a current diagnosis for this admission?: Yes (2) Cardiomyopathy Qualifiers: Cardiomyopathy type: ischemic Qualified Code(s): I25.5 - Ischemic cardiomyopathy Is this a current diagnosis for this admission?: Yes (3) CHF (congestive heart failure) Qualifiers: Congestive heart failure type: combined Congestive heart failure chronicity: acute on chronic Qualified Code(s): I50.43 - Acute on chronic combined systolic (congestive) and diastolic (congestive) heart failure Is this a current diagnosis for this admission?: Yes (4) Chronic kidney disease Qualifiers: Chronic kidney disease stage: stage 3 (moderate) Qualified Code(s): N18.3 - Chronic kidney disease, stage 3 (moderate) Is this a current diagnosis for this admission?: Yes (5) Anemia Qualifiers: Anemia type: iron deficiency Is this a current diagnosis for this admission?: Yes (6) Hypomagnesemia Is this a current diagnosis for this admission?: Yes (7) Pleural effusion Is this a current diagnosis for this admission?: Yes - Notes Notes: Coronary artery disease: Symptomatically stable. Cardiomyopathy: Patient seems to have mild volume overload with CHF finding on chest x-ray. Will increase diuretic therapy Congestive heart failure: JVD is borderline elevated. Recommend continuing IV diuretic therapy. Chronic kidney disease: Currently stable. Anemia: Patient is status post IM transfusion. Hemoglobin has been stable. Hypomagnesemia: This was replaced yesterday. Magnesium level reported at 1.7. Right pleural effusion: Possibly parapneumonic, possibly related to CHF. Could not find report of previous thoracentesis. Will recommend a repeat CT chest or or even a chest x-ray PA and lateral prior to any further paracentesis. - Time Time with patient: 15-25 minutes - CODE STATUS was discussed, patient remains full code. Surrogate decision-maker unchanged. Multiple medical problems were addressed.More than 50% of the time spent coordinating care, discussing management plans with involved caregivers. Management plans discussed with involved personnels. Medical decision making was of moderate complexity. Medications reviewed and adjusted accordingly: Yes
[2016-10-04 04:55] LABS: ABSOLUTE BASOPHILS # (AUTO) 0.1 10^3/uL (0.0-0.2); ABSOLUTE EOSINOPHILS # (AUTO) 0.4 10^3/uL (0.0-0.6); ABSOLUTE LYMPHOCYTES (AUTO) 1.3 10^3/uL (0.5-4.7); ABSOLUTE MONOCYTES (AUTO) 0.9 10^3/uL (0.1-1.4); ABSOLUTE NEUT (AUTO) 3.7 10^3/uL (1.7-8.2); BASOPHILS % (AUTO) 1.3 % (0-2); EOSINOPHILS % (AUTO) 6.6 % (0-6); HEMATOCRIT 27.2 % (37.9-51.0); HEMOGLOBIN 8.2 g/dL (13.5-17.0); HGB HCT DIFFERENCE -2.6; LYMPHOCYTES % (AUTO) 20.2 % (13-45); MEAN CORPUSCULAR HEMOGLOBIN 22.7 pg (27.0-33.4); MEAN CORPUSCULAR HGB CONC 30.3 g/dL (32.0-36.0); MEAN CORPUSCULAR VOLUME 75 fl (80-97); MONOCYTES % (AUTO) 14.4 % (3-13); RED BLOOD COUNT 3.64 10^6/uL (4.35-5.55); RED CELL DISTRIBUTION WIDTH 20.3 % (11.5-14.0); SEGMENTED NEUTROPHILS % (AUTO) 57.5 % (42-78); WHITE BLOOD COUNT 6.4 10^3/uL (4.0-10.5)
[2016-10-04 05:22] LABS: ANION GAP 11 (5-19); BLOOD UREA NITROGEN 19 mg/dL (7-20); CALCIUM 9.1 mg/dL (8.4-10.2); CARBON DIOXIDE 29 mmol/L (22-30); CHLORIDE 99 mmol/L (98-107); CREATININE RESULT 1.96 mg/dL (0.52-1.25); GLUCOSE 144 mg/dL (75-110); SODIUM 138.6 mmol/L (137-145)
--- NOTE | 2016-10-04 08:19 | PDOC PROGRESS REPORT ---
Subjective Progress Note for:: 10/04/16 Subjective:: Patient is feeling much better this morning except the feeling feeling tired and fatigued patient's denied any chest pain or any shortness of breath. On the telemetry percentile is some VTEC events patient is ASYMPTOMATIC. Patient also seen by Dr. dotson. Patient still needed oxygen when he walks around Physical Exam Vital Signs: Temp Pulse Resp BP Pulse Ox 97.3 F 102 H 19 133/69 H 98 10/04/16 03:20 10/04/16 07:00 10/04/16 03:20 10/04/16 03:20 10/04/16 03:20 Intake & Output 10/03/16 10/04/16 10/05/16 06:59 06:59 06:59 Intake Total 1148 906 Output Total 3 Balance 1148 903 Weight 80.3 kg 79.2 kg General appearance: PRESENT: mild distress Head exam: PRESENT: normocephalic Eye exam: PRESENT: PERRLA Mouth exam: PRESENT: neck supple Respiratory exam: PRESENT: clear to auscultation marjorie Cardiovascular exam: PRESENT: +S1, +S2 GI/Abdominal exam: PRESENT: normal bowel sounds, soft Extremities exam: ABSENT: pedal edema Neurological exam: PRESENT: alert, awake, oriented to person, oriented to place Psychiatric exam: PRESENT: anxious Results Laboratory Results: 10/04/16 04:40 10/04/16 04:40 10/03/16 10/04/16 10/04/16 12:44 04:40 04:40 WBC 6.4 RBC 3.64 L Hgb 8.2 L Hct 27.2 L MCV 75 L MCH 22.7 L MCHC 30.3 L RDW 20.3 H Plt Count 197 Seg Neutrophils % 57.5 Lymphocytes % 20.2 Monocytes % 14.4 H Eosinophils % 6.6 H Basophils % 1.3 Absolute Neutrophils 3.7 Absolute Lymphocytes 1.3 Absolute Monocytes 0.9 Absolute Eosinophils 0.4 Absolute Basophils 0.1 Sodium 138.6 Potassium 4.1 4.0 Chloride 99 Carbon Dioxide 29 Anion Gap 11 BUN 19 Creatinine 1.96 H Est GFR ( Amer) 40 L Est GFR (Non-Af Amer) 33 L Glucose 144 H Calcium 9.1 Magnesium 1.8 09/30/16 09/30/16 09/30/16 13:46 13:46 19:36 Creatine Kinase 184 H 162 CK-MB (CK-2) 2.83 Troponin I 0.037 NT-Pro-B Natriuret Pep [id number] H 09/30/16 10/01/16 10/01/16 19:36 01:25 01:25 Creatine Kinase 145 CK-MB (CK-2) 2.85 3.24 Troponin I 0.034 0.045 NT-Pro-B Natriuret Pep 10/04/16 04:40 Creatine Kinase CK-MB (CK-2) Troponin I NT-Pro-B Natriuret Pep [id number] H Impressions: Chest CT 09/30/16 00:00 IMPRESSION: Small right middle lobar fibrosis ; differential diagnosis includes early/small right middle lobar pneumonia. Moderate -large nonspecific right pleural effusion. Surveillance with contrast CT of the chest recommended within 7-12 weeks. Lung Scan-[facility] 09/30/16 00:00 IMPRESSION: Matching airspace disease on chest x-ray with decreased perfusion and ventilation on nuclear medicine scan, triple match is a low probability scan for pulmonary embolus. Chest X-Ray 10/02/16 00:00 IMPRESSION: No significant interval change. Findings as noted above. Assessment & Plan - Diagnosis (1) Shortness of breath Is this a current diagnosis for this admission?: YesPlan: ALT improving (2) CHF (congestive heart failure) Qualifiers: Congestive heart failure type: combined Congestive heart failure chronicity: acute on chronic Qualified Code(s): I50.43 - Acute on chronic combined systolic (congestive) and diastolic (congestive) heart failure Is this a current diagnosis for this admission?: YesPlan: Continues the Lasix (3) Cardiomyopathy Qualifiers: Cardiomyopathy type: ischemic Qualified Code(s): I25.5 - Ischemic cardiomyopathy Is this a current diagnosis for this admission?: YesPlan: Continues the current medications (4) Chronic kidney disease Qualifiers: Chronic kidney disease stage: stage 3 (moderate) Qualified Code(s): N18.3 - Chronic kidney disease, stage 3 (moderate) Is this a current diagnosis for this admission?: YesPlan: Kidney function is stable (5) Coronary artery disease Qualifiers: Coronary Disease-Associated Artery/Lesion type: unspecified vessel or lesion type Associated angina: angina presence unspecified Is this a current diagnosis for this admission?: YesPlan: No acute finding (6) Gastroesophageal reflux disease with esophagitis Is this a current diagnosis for this admission?: YesPlan: stable (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 woodall (8) Pleural effusion Is this a current diagnosis for this admission?: YesPlan: We will get the ultrasound of the chest - Time Time Spent with patient: 15-24 minutes Medications reviewed and adjusted accordingly: Yes Anticipated discharge: Home - Inpatient Certification Medical Necessity: Need Close Monitoring Due to Risk of Patient Decompensation, Need for IV Antibiotics - Plan Summary Plan Summary: Very extensive discussions with the patient's family and the patient about all that is scissors and the conditions will get the ultrasound of the chest and if there is not enough fliud distribution may be discharged in am
--- NOTE | 2016-10-04 08:21 | PDOC PROGRESS REPORT ---
Subjective Progress Note for:: 10/04/16 Subjective:: No acute events overnight, patient was able to get up and walk around without need for oxygen, seems to look good today Physical Exam Vital Signs: Temp Pulse Resp BP Pulse Ox 97.3 F 102 H 19 133/69 H 98 10/04/16 03:20 10/04/16 07:00 10/04/16 03:20 10/04/16 03:20 10/04/16 03:20 Intake & Output 10/03/16 10/04/16 10/05/16 06:59 06:59 06:59 Intake Total 1148 906 Output Total 3 Balance 1148 903 Weight 80.3 kg 79.2 kg General appearance: PRESENT: no acute distress, well-developed, well-nourished Head exam: PRESENT: atraumatic, normocephalic Eye exam: PRESENT: conjunctiva pink, EOMI, PERRLA. ABSENT: scleral icterus Ear exam: PRESENT: normal external ear exam Mouth exam: PRESENT: moist, tongue midline Neck exam: ABSENT: carotid bruit, JVD, lymphadenopathy, thyromegaly Respiratory exam: PRESENT: clear to auscultation marjorie. ABSENT: rales, rhonchi, wheezes Cardiovascular exam: PRESENT: RRR. ABSENT: diastolic murmur, rubs, systolic murmur Pulses: PRESENT: normal dorsalis pedis pul Vascular exam: PRESENT: normal capillary refill GI/Abdominal exam: PRESENT: normal bowel sounds, soft. ABSENT: distended, guarding, mass, organolmegaly, rebound, tenderness Rectal exam: PRESENT: deferred Extremities exam: PRESENT: full ROM. ABSENT: calf tenderness, clubbing, pedal edema Neurological exam: PRESENT: alert, awake, oriented to person, oriented to place , oriented to time, oriented to situation, CN II-XII grossly intact. ABSENT: motor sensory deficit Psychiatric exam: PRESENT: appropriate affect, normal mood. ABSENT: homicidal ideation, suicidal ideation Skin exam: PRESENT: dry, intact, warm. ABSENT: cyanosis, rash Results Laboratory Results: 10/04/16 04:40 10/04/16 04:40 10/03/16 10/04/16 10/04/16 12:44 04:40 04:40 WBC 6.4 RBC 3.64 L Hgb 8.2 L Hct 27.2 L MCV 75 L MCH 22.7 L MCHC 30.3 L RDW 20.3 H Plt Count 197 Seg Neutrophils % 57.5 Lymphocytes % 20.2 Monocytes % 14.4 H Eosinophils % 6.6 H Basophils % 1.3 Absolute Neutrophils 3.7 Absolute Lymphocytes 1.3 Absolute Monocytes 0.9 Absolute Eosinophils 0.4 Absolute Basophils 0.1 Sodium 138.6 Potassium 4.1 4.0 Chloride 99 Carbon Dioxide 29 Anion Gap 11 BUN 19 Creatinine 1.96 H Est GFR ( Amer) 40 L Est GFR (Non-Af Amer) 33 L Glucose 144 H Calcium 9.1 Magnesium 1.8 09/30/16 09/30/16 09/30/16 13:46 13:46 19:36 Creatine Kinase 184 H 162 CK-MB (CK-2) 2.83 Troponin I 0.037 NT-Pro-B Natriuret Pep [id number] H 09/30/16 10/01/16 10/01/16 19:36 01:25 01:25 Creatine Kinase 145 CK-MB (CK-2) 2.85 3.24 Troponin I 0.034 0.045 NT-Pro-B Natriuret Pep 10/04/16 04:40 Creatine Kinase CK-MB (CK-2) Troponin I NT-Pro-B Natriuret Pep [id number] H Impressions: Chest CT 09/30/16 00:00 IMPRESSION: Small right middle lobar fibrosis ; differential diagnosis includes early/small right middle lobar pneumonia. Moderate -large nonspecific right pleural effusion. Surveillance with contrast CT of the chest recommended within 7-12 weeks. Lung Scan-[facility] 09/30/16 00:00 IMPRESSION: Matching airspace disease on chest x-ray with decreased perfusion and ventilation on nuclear medicine scan, triple match is a low probability scan for pulmonary embolus. Chest X-Ray 10/02/16 00:00 IMPRESSION: No significant interval change. Findings as noted above. Assessment & Plan - Diagnosis (1) Iron deficiency anemia secondary to blood loss (chronic) Is this a current diagnosis for this admission?: YesPlan: We will give another dose of ferriheme today (2) Pleural effusion Is this a current diagnosis for this admission?: YesPlan: Seems improved clinically, per Dr. Aguilar he was in a do another chest ultrasound today, if that looked improved he may be able to discharged today. - Time Time Spent with patient: 15-24 minutes Critical Time spent with patient: 15-24 minutes
[2016-10-04] MEDS: FUROSEMIDE INJ/PF 20 MG/2 ML SDV IV SCH (10:01)
[2016-10-04] MEDS: LANSOPRAZOLE 30 MG TAB.RAP.DR PO SCH (10:01)
[2016-10-04] MEDS: AZITHROMYCIN 250 MG TABLET PO SCH (10:02)
--- NOTE | 2016-10-04 11:21 | PDOC PROGRESS REPORT ---
Subjective Progress Note for:: 10/04/16 Subjective:: Patient seems to be doing better with gradual improvement. He has some shortness of breath on exertion. Pt is denying any chest arm or neck discomfort. Patient denying any PND, orthopnea. Patient denied any sustained palpitations, dizziness, syncope, near syncope. Patient denying any fever chills. Patient denying any other significant discomfort. Patient is maintaining sinus rhythm. Patient noted to have a few episodes of nonsustained wide-complex tachycardia, which is felt to be mostly related to paroxysmal atrial tachycardia. Review of systems: Rest review of systems negative. Medications: Medications have been reviewed. Physical Exam Vital Signs: Temp Pulse Resp BP Pulse Ox 97.3 F 99 18 133/64 H 99 10/04/16 03:20 10/04/16 08:45 10/04/16 08:45 10/04/16 08:45 10/04/16 08:45 Intake & Output 10/03/16 10/04/16 10/05/16 06:59 06:59 06:59 Intake Total 1148 906 460 Output Total 3 Balance 1148 903 460 Weight 80.3 kg 79.2 kg Exam: GENERAL: well-nourished and in no acute distress. Alert and oriented x3 HEAD: Atraumatic, normocephalic. EYES: Pupils equal round and reactive to light, extraocular movements intact, sclera anicteric, conjunctiva are normal. ENT: TMs normal, nares patent, oropharynx clear without exudates. Moist mucous membranes. No oral ulcerations or bleeding gums noted NECK: supple without lymphadenopathy. Trachea is central. No cervical or axillary lymphadenopathy noted. Carotids are 2+, JVD WNL LUNGS: Respiration seems nonlabored, no significant accessory muscle action noted. Patient noted to have diminished breath sounds right base and some dullness right base. CHEST: Palpation of the chest wall shows no significant chest wall tenderness or abnormalities. 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 ABDOMEN: Soft, no significant tenderness appreciated, normoactive bowel sounds. No guarding, no rebound. No rigidity noted . No masses appreciated. EXTREMITIES: Pedal pulses are 1-2+, no calf tenderness noted. No clubbing or cyanosis.trace to 1+ pedal edema noted NEUROLOGICAL: Focused neurological exam showed no significant neurologic deficit. Normal speech, no focal weakness appreciated. PSYCH: Normal mood, normal affect. Judgment and insight within normal limits. SKIN: No significant ecchymosis, rash, ulcerations or signs of pruritus noted. MUSCULOSKELETAL EXAM: No significant joint swelling noted. Results Laboratory Results: 10/04/16 04:40 10/04/16 04:40 10/03/16 10/04/16 10/04/16 12:44 04:40 04:40 WBC 6.4 RBC 3.64 L Hgb 8.2 L Hct 27.2 L MCV 75 L MCH 22.7 L MCHC 30.3 L RDW 20.3 H Plt Count 197 Seg Neutrophils % 57.5 Lymphocytes % 20.2 Monocytes % 14.4 H Eosinophils % 6.6 H Basophils % 1.3 Absolute Neutrophils 3.7 Absolute Lymphocytes 1.3 Absolute Monocytes 0.9 Absolute Eosinophils 0.4 Absolute Basophils 0.1 Sodium 138.6 Potassium 4.1 4.0 Chloride 99 Carbon Dioxide 29 Anion Gap 11 BUN 19 Creatinine 1.96 H Est GFR ( Amer) 40 L Est GFR (Non-Af Amer) 33 L Glucose 144 H Calcium 9.1 Magnesium 1.8 09/30/16 09/30/16 09/30/16 13:46 13:46 19:36 Creatine Kinase 184 H 162 CK-MB (CK-2) 2.83 Troponin I 0.037 NT-Pro-B Natriuret Pep [id number] H 09/30/16 10/01/16 10/01/16 19:36 01:25 01:25 Creatine Kinase 145 CK-MB (CK-2) 2.85 3.24 Troponin I 0.034 0.045 NT-Pro-B Natriuret Pep 10/04/16 04:40 Creatine Kinase CK-MB (CK-2) Troponin I NT-Pro-B Natriuret Pep [id number] H Impressions: Chest CT 09/30/16 00:00 IMPRESSION: Small right middle lobar fibrosis ; differential diagnosis includes early/small right middle lobar pneumonia. Moderate -large nonspecific right pleural effusion. Surveillance with contrast CT of the chest recommended within 7-12 weeks. [facility] Scan[facility] 09/30/16 00:00 IMPRESSION: Matching airspace disease on chest x-ray with decreased perfusion and ventilation on nuclear medicine scan, triple match is a low probability scan for pulmonary embolus. Chest X-Ray 10/02/16 00:00 IMPRESSION: No significant interval change. Findings as noted above. Assessment & Plan - Diagnosis (1) Coronary artery disease Qualifiers: Coronary Disease-Associated Artery/Lesion type: unspecified vessel or lesion type Associated angina: angina presence unspecified Is this a current diagnosis for this admission?: Yes (2) Cardiomyopathy Qualifiers: Cardiomyopathy type: ischemic Qualified Code(s): I25.5 - Ischemic cardiomyopathy Is this a current diagnosis for this admission?: Yes (3) CHF (congestive heart failure) Qualifiers: Congestive heart failure type: combined Congestive heart failure chronicity: acute on chronic Qualified Code(s): I50.43 - Acute on chronic combined systolic (congestive) and diastolic (congestive) heart failure Is this a current diagnosis for this admission?: Yes (4) Chronic kidney disease Qualifiers: Chronic kidney disease stage: stage 3 (moderate) Qualified Code(s): N18.3 - Chronic kidney disease, stage 3 (moderate) Is this a current diagnosis for this admission?: Yes (5) Anemia Qualifiers: Anemia type: iron deficiency Is this a current diagnosis for this admission?: Yes (6) Hypomagnesemia Is this a current diagnosis for this admission?: Yes (7) Pleural effusion Is this a current diagnosis for this admission?: Yes - Notes Notes: Nonsustained wide-complex tachycardia: Patient started on metoprolol succinate 12.5 mg by mouth twice a day and also Ranexa 500 mg by mouth twice a day. Hopefully this will help reduce further episodes. Patient was noted to be asymptomatic during these spells. Patient denied any prior history of overt syncope or near syncope. Coronary artery disease: Symptomatically stable. Cardiomyopathy: Patient seems to have mild volume overload with CHF finding on chest x-ray. Have placed patient on Demadex 10 mg by mouth daily. May consider adding spironolactone therapy if cleared by infant teacher. Congestive heart failure: Patient due to have a chest x-ray and the ultrasound of the chest will review this findings. Chronic kidney disease: Currently stable. Anemia: Patient is status post iron transfusion. Hemoglobin has been stable. Continue to follow this closely and transfuse as needed to maintain hemoglobin above 8 g percent. May consider erythropoietin therapy. Hypomagnesemia: This has been corrected. Right pleural effusion: possibly related to CHF. Will recommend a repeat CT chest or or even a chest x-ray PA and lateral prior to any further paracentesis. - Time Time with patient: Greater than 35 minutes - CODE STATUS was discussed, patient remains full code. Surrogate decision-maker unchanged. Multiple medical problems were addressed.More than 50% of the time spent coordinating care, discussing management plans with involved caregivers. Management plans discussed with involved personnels. Medical decision making was of moderate complexity.
[2016-10-04] MEDS ORDERED: FERUMOXYTOL (ESRD) 510 MG/NS 100 ML IV ONE ×2 (12:00)
[2016-10-04] MEDS ORDERED: METOPROLOL SUCCINATE 25 MG TAB.SR.24H PO ONE (12:00)
[2016-10-04] MEDS ORDERED: TORSEMIDE 20 MG TABLET PO ONE (12:30)
[2016-10-04] MEDS ORDERED: FERUMOXYTOL (NON-ESRD) 510 MG/NS 100 ML IV ONE ×2 (15:00)
--- NOTE | 2016-10-04 17:36 | PDOC CONSULTATION ---
Consultation Consult Date: 10/04/16 Consult reason:: CKD History of Present Illness Admission Date/PCP: 09/30/16 13:06 RENUKA RAMIREZ MD History of Present Illness: TYRESE QUISPE is a 76 year old male with known history of CHF, CAD also chronic kidney disease stage 4, who presents with a 3 month history of worsening shortness of breath and chest pain. Of note about a year ago patient did have a non-ST elevation [place], ultimately was transferred to [place], and apparently had an EF as low as 29%. Apparently more recent ECHO done in [place] has been higher up to 35-40%. He is also had some recent worsening anemia, Dr. Ramirez did send iron studies which indicated a ferritin of 10, iron saturation of 5%. Of note, in the [facility] system, we do see that he had a EGD done in 2014 and was found to have duodenal ulcers. He also is H. pylori positive. Unsure if he was fully treated for the H. pylori. He denies any black tarry stool or any hematochezia or hematemesis. His major issue has been increasing shortness of breath. Because of the shortness of breath and chest pain, Dr. Ramirez ultimately did a pulmonary embolus him workup, this culminated in a CT of the chest, which indicated no evidence of PE but it did indicate pneumonia as well as right pleural effusion. He is currently being treated for right pneumonia with a small Syn Pneumonic effusion. Feels lots better . Edema is also better. denied any chest pain, shortness of breath. Renal nos have remained stable Past Medical History Cardiac Medical History: Reports: Coronary Artery Disease, Hypertension-primary Neurological Medical History: Denies: Seizures Endocrine Medical History: Reports: Diabetes Mellitus Type 2 Renal/ Medical History: Reports: Chronic Kidney Disease Stage III GI Medical History: Reports: Gastroesophageal Reflux Disease, Peptic Ulcer Disease Past Surgical History Past Surgical History: Reports: Cardiac Catheterization, Coronary Artery Bypass Graft, Other - EGD, colonoscopy Social History Smoking Status: Former Smoker Last Time Smoked: 25 Frequency of Alcohol Use: None Hx Recreational Drug Use: No Drugs: None Hx Prescription Drug Abuse: No - Advance Directive Resuscitation Status: Full Code Family History Parental Family History Reviewed: Yes - negative for ckd Children Family History Reviewed: No Sibling(s) Family History Reviewed.: No Medication/Allergy Home Medications: Amlodipine Besylate [Norvasc 5 mg Tablet] 5 mg PO BID 09/30/16 Clopidogrel Bisulfate [Plavix] 75 mg PO DAILY 09/30/16 Colchicine [Colchicine 0.6 mg Tablet] 0.6 mg PO DAILY 09/30/16 Glipizide 5 mg PO BID 09/30/16 Isosorbide Mononitrate [Imdur 30 mg Tablet.er] 30 mg PO DAILY 09/30/16 Levetiracetam [Keppra Xr 500 Mg Tab.Sr] 500 mg PO DAILY 09/30/16 Metoprolol Tartrate [Lopressor] 100 mg PO BID 09/30/16 Nitroglycerin 4.9 gm TL ASDIR PRN 09/30/16 Pravastatin Sodium [Pravachol] 40 mg PO DAILY 09/30/16 Simvastatin [Zocor 10 mg Tablet] 10 mg PO DAILY 09/30/16 Allergies/Adverse Reactions: codeine [Codeine] Allergy (Verified 09/19/16 13:49) Review of Systems Constitutional: PRESENT: weakness. ABSENT: fever(s), headache(s), night sweats Ears: ABSENT: hearing changes Nose, Mouth, and Throat: ABSENT: mouth pain Cardiovascular: PRESENT: dyspnea on exertion, edema, orthropnea. ABSENT: palpitations Gastrointestinal: ABSENT: coffee ground emesis, constipation, diarrhea, dysphagia, heartburn, hematemesis, hematochezia Genitourinary: ABSENT: dysuria, hematuria Integumentary: ABSENT: lesions, pruritus, rash Neurological: ABSENT: abnormal speech, confusion, focal weakness, frequent falls Physical Exam Vital Signs: Temp Pulse Resp BP Pulse Ox 97.7 F 98 16 139/68 H 100 10/04/16 12:24 10/04/16 12:24 10/04/16 12:24 10/04/16 12:24 10/04/16 12:24 Intake & Output 10/03/16 10/04/16 10/05/16 06:59 06:59 06:59 Intake Total 1148 906 885 Output Total 3 Balance 1148 903 885 Weight 80.3 kg 79.2 kg General appearance: PRESENT: no acute distress Eye exam: PRESENT: EOMI, PERRLA. ABSENT: nystagmus, periorbital swelling Mouth exam: PRESENT: moist, neck supple Neck exam: ABSENT: lymphadenopathy, meningismus, tenderness, thyromegaly, tracheal deviation Respiratory exam: PRESENT: clear to auscultation marjorie. ABSENT: crackles, rhonchi Cardiovascular exam: PRESENT: +S1, +S2, systolic murmur Pulses: PRESENT: +1 pedal pulses bilateral GI/Abdominal exam: PRESENT: soft. ABSENT: distended, firm, guarding, tenderness Extremities exam: ABSENT: pedal edema Neurological exam: PRESENT: awake, oriented to person, oriented to place, oriented to time Psychiatric exam: PRESENT: appropriate affect Skin exam: ABSENT: cyanosis, dry, pallor, petechiae, rash Results Laboratory Results: 10/04/16 04:40 10/04/16 04:40 10/04/16 10/04/16 04:40 04:40 WBC 6.4 RBC 3.64 L Hgb 8.2 L Hct 27.2 L MCV 75 L MCH 22.7 L MCHC 30.3 L RDW 20.3 H Plt Count 197 Seg Neutrophils % 57.5 Lymphocytes % 20.2 Monocytes % 14.4 H Eosinophils % 6.6 H Basophils % 1.3 Absolute Neutrophils 3.7 Absolute Lymphocytes 1.3 Absolute Monocytes 0.9 Absolute Eosinophils 0.4 Absolute Basophils 0.1 Sodium 138.6 Potassium 4.0 Chloride 99 Carbon Dioxide 29 Anion Gap 11 BUN 19 Creatinine 1.96 H Est GFR ( Amer) 40 L Est GFR (Non-Af Amer) 33 L Glucose 144 H Calcium 9.1 09/30/16 09/30/16 09/30/16 13:46 13:46 19:36 Creatine Kinase 184 H 162 CK-MB (CK-2) 2.83 Troponin I 0.037 NT-Pro-B Natriuret Pep 12452 H 09/30/16 10/01/16 10/01/16 19:36 01:25 01:25 Creatine Kinase 145 CK-MB (CK-2) 2.85 3.24 Troponin I 0.034 0.045 NT-Pro-B Natriuret Pep 10/04/16 04:40 Creatine Kinase CK-MB (CK-2) Troponin I NT-Pro-B Natriuret Pep [id number] H Impressions: Chest CT 09/30/16 00:00 IMPRESSION: Small right middle lobar fibrosis ; differential diagnosis includes early/small right middle lobar pneumonia. Moderate -large nonspecific right pleural effusion. Surveillance with contrast CT of the chest recommended within 7-12 weeks. Lung Scan-VQ NM 09/30/16 00:00 IMPRESSION: Matching airspace disease on chest x-ray with decreased perfusion and ventilation on nuclear medicine scan, triple match is a low probability scan for pulmonary embolus. Chest Ultrasound 10/04/16 00:00 IMPRESSION: A small to moderate right pleural effusion is identified. Chest X-Ray 10/04/16 06:00 IMPRESSION: Interval improvement in the right basilar densities. No other significant interval change. Other findings as noted above Assessment & Plan - Diagnosis (1) Anemia Qualifiers: Anemia type: iron deficiency Is this a current diagnosis for this admission?: YesPlan: as per GI/Hem onc. (2) CHF (congestive heart failure) Qualifiers: Congestive heart failure type: combined Congestive heart failure chronicity: acute on chronic Qualified Code(s): I50.43 - Acute on chronic combined systolic (congestive) and diastolic (congestive) heart failure Is this a current diagnosis for this admission?: YesPlan: improved (3) Cardiomyopathy Qualifiers: Cardiomyopathy type: ischemic Qualified Code(s): I25.5 - Ischemic cardiomyopathy Is this a current diagnosis for this admission?: Yes (4) Coronary artery disease Qualifiers: Coronary Disease-Associated Artery/Lesion type: unspecified vessel or lesion type Associated angina: angina presence unspecified Is this a current diagnosis for this admission?: Yes (5) Chronic kidney disease Qualifiers: Chronic kidney disease stage: stage 3 (moderate) Qualified Code(s): N18.3 - Chronic kidney disease, stage 3 (moderate) Is this a current diagnosis for this admission?: YesPlan: stable.Continue current rxs.Follow up with me in office 2 weeks post dc. 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 (7) Pneumonia Plan: Right with a small para pneumonic effusion.On abx and improving.
[2016-10-04] MEDS: CEFTRIAXONE 1 GM/D5W RTU 1 GM/50 ML RTUPB IV SCH (17:47)
[2016-10-04] MEDS ORDERED: RANOLAZINE 500 MG TAB.SR.12H PO ONE (22:50)
[2016-10-04] MEDS: METOPROLOL SUCCINATE 25 MG TAB.SR.24H PO SCH (22:53)
[2016-10-04] MEDS: RANOLAZINE 500 MG TAB.SR.12H PO SCH (22:56)
[2016-10-04] MEDS: INSULIN LISPRO 100 UNIT/ML 3 ML VIAL SUBCUT PRN (23:21)
[2016-10-05 06:33] LABS: ANION GAP 14 (5-19); BLOOD UREA NITROGEN 20 mg/dL (7-20); CARBON DIOXIDE 27 mmol/L (22-30); CHLORIDE 98 mmol/L (98-107); CREATININE RESULT 1.76 mg/dL (0.52-1.25); GLUCOSE 186 mg/dL (75-110); POTASSIUM 3.9 mmol/L (3.6-5.0); SODIUM 138.5 mmol/L (137-145)
[2016-10-05] MEDS: LANSOPRAZOLE 30 MG TAB.RAP.DR PO SCH (07:48)
[2016-10-05] MEDS: INSULIN LISPRO 100 UNIT/ML 3 ML VIAL SUBCUT PRN ×2 (07:49→11:21)
[2016-10-05] MEDS ORDERED: TORSEMIDE 20 MG TABLET PO SCH (10:00)
[2016-10-05 10:07] LABS: ABSOLUTE BASOPHILS # (AUTO) 0.1 10^3/uL (0.0-0.2); ABSOLUTE EOSINOPHILS # (AUTO) 0.4 10^3/uL (0.0-0.6); ABSOLUTE LYMPHOCYTES (AUTO) 0.7 10^3/uL (0.5-4.7); ABSOLUTE MONOCYTES (AUTO) 0.7 10^3/uL (0.1-1.4); ABSOLUTE NEUT (AUTO) 8.1 10^3/uL (1.7-8.2); BASOPHILS % (AUTO) 1.3 % (0-2); EOSINOPHILS % (AUTO) 3.8 % (0-6); HEMATOCRIT 29.6 % (37.9-51.0); HEMOGLOBIN 9.1 g/dL (13.5-17.0); HGB HCT DIFFERENCE -2.3; MEAN CORPUSCULAR HEMOGLOBIN 23.4 pg (27.0-33.4); MEAN CORPUSCULAR HGB CONC 30.8 g/dL (32.0-36.0); MEAN CORPUSCULAR VOLUME 76 fl (80-97); MONOCYTES % (AUTO) 6.8 % (3-13); RED BLOOD COUNT 3.89 10^6/uL (4.35-5.55); RED CELL DISTRIBUTION WIDTH 20.2 % (11.5-14.0); SEGMENTED NEUTROPHILS % (AUTO) 81.1 % (42-78)
--- NOTE | 2016-10-05 10:29 | PDOC DISCHARGE SUMMARY ---
General - Admit/Disc Date/PCP Admission Date/Primary Care Provider: 09/30/16 13:06 RENUKA RAMIREZ MD Discharge Date: 10/05/16 - Discharge Diagnosis (1) Shortness of breath Is this a current diagnosis for this admission?: YesSummary: All resolving (2) CHF (congestive heart failure) Is this a current diagnosis for this admission?: YesSummary: Currently stable continues the diuretics therapy and follow Dr. edmonds as outpatient (3) Cardiomyopathy Is this a current diagnosis for this admission?: YesSummary: Patient's EF is stable (4) Chronic kidney disease Is this a current diagnosis for this admission?: YesSummary: Seen by Dr. Coronel (5) Coronary artery disease Is this a current diagnosis for this admission?: YesSummary: No acute cardiac events (6) Gastroesophageal reflux disease with esophagitis Is this a current diagnosis for this admission?: YesSummary: Status post endoscopy all stable patient's follow with Dr. Damian as outpatient (7) Iron deficiency anemia secondary to blood loss (chronic) Is this a current diagnosis for this admission?: YesSummary: Consistent the iron transfusion no sign of any acute GI loss follow with the hematology and follow out patient's capsule endoscopy and colonoscopy per Dr. Damian (8) Pleural effusion Is this a current diagnosis for this admission?: YesSummary: Most likely a from heart failure currently stable repeat the chest x-ray and further evaluate currently hold the Plavix anemia possible GI bleed possible patient's denied thoracocentesis as outpatient patient's persistent pleural effusion (9) Pneumonia Is this a current diagnosis for this admission?: YesSummary: No sign of any fever white count is normal the patient and the by mouth doxycycline and repeat the chest x-ray next week further assess (10) Dementia Is this a current diagnosis for this admission?: YesSummary: Most likely senile dementia - Additional Information Resuscitation Status: Full Code Discharge Diet: Diabetic Discharge Activity: Activity As Tolerated, Balance Activity w/Rest, Weigh Daily Home Medications: Glipizide 5 mg PO BID 09/30/16 Isosorbide Mononitrate [Imdur 30 mg Tablet.er] 30 mg PO DAILY 09/30/16 Levetiracetam [Keppra Xr 500 mg Tab.sr] 500 mg PO DAILY 09/30/16 Nitroglycerin 4.9 gm TL ASDIR PRN 09/30/16 Pravastatin Sodium [Pravachol] 40 mg PO DAILY 09/30/16 Simvastatin [Zocor 10 mg Tablet] 10 mg PO DAILY 09/30/16 Doxycycline Monohydrate 100 mg PO BID #14 tablet 10/05/16 Metoprolol Succinate [Toprol Xl 25 mg Tab.sr] 12.5 mg PO Q12 #60 tab.sr.24h Ranolazine [Ranexa 500 mg Tab.sr] 500 mg PO Q12 #60 tab.sr.12h 10/05/16 Torsemide [Demadex 20 mg Tablet] 10 mg PO DAILY #30 tablet 10/05/16 History of Present Illness History of Present Illness: TYRESE QUISPE is a 76 year old male This is a 76-year-old male resents in the office with the complaining of shortness of the breath and not feeling well anemia that it admitted in the hospital for further evaluation and treatment recent at this point consult Dr. Damian for further evaluation for any GI also consult the hematology consult the cardiology and nephrology further evaluation also started on IV antibiotic the possible pneumonia also IV diuretics Hospital Course Hospital Course: 76-year-old male with a significant history of the coronary artery disease post bypass surgery recently went to the [facility] and cardiac evaluation was done all stable patient was admitted for anemia and shortness of the breath and possible pneumonia patient also have a right-sided pleural effusion which it thoracocentesis as well as order unable to do it because patient was on the Plavix is and was also put on IV antibiotic and IV diuretics and the cardiology and nephrology was consulted at. Patient's also have on endoscopy and colonoscopy and nothing acute finding follow as outpatient for further evaluations patient's pleural effusion is also improving this point so decided to not do the thoracocentesis further evaluate next week currently hold the Plavix possible underlying GI bleed is probably need a capsule endoscopy as outpatient if the patient have persistent pleural effusions no thoracocentesis is out of. Patient otherwise desperately wants to go home at this point patient is currently stable and d/w the doc administrative office specialist and liquid flavor compounder suggest the patient's discharge on cardic stand ponit. Patient's otherwise doing very well patient's need a oxygen while he walk the extensive discussions with the patient's family out of the patient's current conditions and all test results and follow as outpatient patient's Physical Exam Vital Signs: Temp Pulse Resp BP Pulse Ox 98.0 F 95 16 137/76 H 96 10/05/16 07:15 10/05/16 07:15 10/05/16 07:15 10/05/16 07:15 10/05/16 07:15 Intake & Output 10/04/16 10/05/16 10/06/16 06:59 06:59 06:59 Intake Total 906 1905 300 Output Total 3 775 250 Balance 903 1130 50 Weight 79.2 kg 79.2 kg General appearance: PRESENT: no acute distress, well-developed, well-nourished Head exam: PRESENT: atraumatic, normocephalic Eye exam: PRESENT: conjunctiva pink, EOMI, PERRLA. ABSENT: scleral icterus Ear exam: PRESENT: normal external ear exam Mouth exam: PRESENT: moist, tongue midline Neck exam: PRESENT: full ROM. ABSENT: carotid bruit, JVD, lymphadenopathy, thyromegaly Cardiovascular exam: PRESENT: RRR. ABSENT: diastolic murmur, rubs, systolic murmur Pulses: PRESENT: normal dorsalis pedis pul, +2 pedal pulses bilateral Vascular exam: PRESENT: normal capillary refill GI/Abdominal exam: PRESENT: normal bowel sounds, soft. ABSENT: distended, guarding, mass, organolmegaly, rebound, tenderness Rectal exam: PRESENT: deferred Neurological exam: PRESENT: alert, awake, oriented to person, oriented to place , oriented to time, oriented to situation, CN II-XII grossly intact. ABSENT: motor sensory deficit Psychiatric exam: PRESENT: appropriate affect, normal mood. ABSENT: homicidal ideation, suicidal ideation Skin exam: PRESENT: dry, intact, warm. ABSENT: cyanosis, rash Results Laboratory Results: 10/05/16 09:56 10/05/16 05:27 10/05/16 10/05/16 05:27 09:56 WBC 10.0 RBC 3.89 L Hgb 9.1 L Hct 29.6 L MCV 76 L MCH 23.4 L MCHC 30.8 L RDW 20.2 H Plt Count 218 Seg Neutrophils % 81.1 H Lymphocytes % 7.0 L Monocytes % 6.8 Eosinophils % 3.8 Basophils % 1.3 Absolute Neutrophils 8.1 Absolute Lymphocytes 0.7 Absolute Monocytes 0.7 Absolute Eosinophils 0.4 Absolute Basophils 0.1 Sodium 138.5 Potassium 3.9 Chloride 98 Carbon Dioxide 27 Anion Gap 14 BUN 20 Creatinine 1.76 H Est GFR ( Amer) 46 L Est GFR (Non-Af Amer) 38 L Glucose 186 H Calcium 9.0 09/30/16 09/30/16 09/30/16 13:46 13:46 19:36 Creatine Kinase 184 H 162 CK-MB (CK-2) 2.83 Troponin I 0.037 NT-Pro-B Natriuret Pep 85545 H 09/30/16 10/01/16 10/01/16 19:36 01:25 01:25 Creatine Kinase 145 CK-MB (CK-2) 2.85 3.24 Troponin I 0.034 0.045 NT-Pro-B Natriuret Pep 10/04/16 04:40 Creatine Kinase CK-MB (CK-2) Troponin I NT-Pro-B Natriuret Pep [id number] H Impressions: Chest CT 09/30/16 00:00 IMPRESSION: Small right middle lobar fibrosis ; differential diagnosis includes early/small right middle lobar pneumonia. Moderate -large nonspecific right pleural effusion. Surveillance with contrast CT of the chest recommended within 7-12 weeks. Lung Scan-VQ NM 09/30/16 00:00 IMPRESSION: Matching airspace disease on chest x-ray with decreased perfusion and ventilation on nuclear medicine scan, triple match is a low probability scan for pulmonary embolus. Chest Ultrasound 10/04/16 00:00 IMPRESSION: A small to moderate right pleural effusion is identified. Chest X-Ray 10/04/16 06:00 IMPRESSION: Interval improvement in the right basilar densities. No other significant interval change. Other findings as noted above Qualifiers PATEINT BEING DISCHARGED WITH ANY OF THE FOLLOWING DIAGNOSIS?: Heart Failure HF Pt being discharged on ACEI for LVEF less than 40%?: No Reason(s) for not prescribing ACEI:: Contraindicated HF Pt being discharged on ARBS for LVEF less than 40%?: No Reason(s) for not prescribing ARBS:: Contraindicated HF Pt discharged on evidence-based Beta Lupe?: Yes Plan Time Spent: Greater than 30 Minutes
--- NOTE | 2016-10-05 11:00 | PDOC PROGRESS REPORT ---
Subjective Progress Note for:: 10/05/16 Subjective:: Patient feels great this morning, planning for discharge Physical Exam Vital Signs: Temp Pulse Resp BP Pulse Ox 98.0 F 95 16 137/76 H 96 10/05/16 07:15 10/05/16 07:15 10/05/16 07:15 10/05/16 07:15 10/05/16 07:15 Intake & Output 10/04/16 10/05/16 10/06/16 06:59 06:59 06:59 Intake Total 906 1905 300 Output Total 3 775 250 Balance 903 1130 50 Weight 79.2 kg 79.2 kg General appearance: PRESENT: no acute distress, well-developed, well-nourished Head exam: PRESENT: atraumatic, normocephalic Eye exam: PRESENT: conjunctiva pink, EOMI, PERRLA. ABSENT: scleral icterus Ear exam: PRESENT: normal external ear exam Mouth exam: PRESENT: moist, tongue midline Neck exam: ABSENT: carotid bruit, JVD, lymphadenopathy, thyromegaly Respiratory exam: PRESENT: clear to auscultation marjorie. ABSENT: rales, rhonchi, wheezes Cardiovascular exam: PRESENT: RRR. ABSENT: diastolic murmur, rubs, systolic murmur Pulses: PRESENT: normal dorsalis pedis pul Vascular exam: PRESENT: normal capillary refill GI/Abdominal exam: PRESENT: normal bowel sounds, soft. ABSENT: distended, guarding, mass, organolmegaly, rebound, tenderness Rectal exam: PRESENT: deferred Extremities exam: PRESENT: full ROM. ABSENT: calf tenderness, clubbing, pedal edema Neurological exam: PRESENT: alert, awake, oriented to person, oriented to place , oriented to time, oriented to situation, CN II-XII grossly intact. ABSENT: motor sensory deficit Psychiatric exam: PRESENT: appropriate affect, normal mood. ABSENT: homicidal ideation, suicidal ideation Skin exam: PRESENT: dry, intact, warm. ABSENT: cyanosis, rash Results Laboratory Results: 10/05/16 09:56 10/05/16 05:27 10/05/16 10/05/16 05:27 09:56 WBC 10.0 RBC 3.89 L Hgb 9.1 L Hct 29.6 L MCV 76 L MCH 23.4 L MCHC 30.8 L RDW 20.2 H Plt Count 218 Seg Neutrophils % 81.1 H Lymphocytes % 7.0 L Monocytes % 6.8 Eosinophils % 3.8 Basophils % 1.3 Absolute Neutrophils 8.1 Absolute Lymphocytes 0.7 Absolute Monocytes 0.7 Absolute Eosinophils 0.4 Absolute Basophils 0.1 Sodium 138.5 Potassium 3.9 Chloride 98 Carbon Dioxide 27 Anion Gap 14 BUN 20 Creatinine 1.76 H Est GFR ( Amer) 46 L Est GFR (Non-Af Amer) 38 L Glucose 186 H Calcium 9.0 09/30/16 09/30/16 09/30/16 13:46 13:46 19:36 Creatine Kinase 184 H 162 CK-MB (CK-2) 2.83 Troponin I 0.037 NT-Pro-B Natriuret Pep 26125 H 09/30/16 10/01/16 10/01/16 19:36 01:25 01:25 Creatine Kinase 145 CK-MB (CK-2) 2.85 3.24 Troponin I 0.034 0.045 NT-Pro-B Natriuret Pep 10/04/16 04:40 Creatine Kinase CK-MB (CK-2) Troponin I NT-Pro-B Natriuret Pep [id number] H Impressions: Chest CT 09/30/16 00:00 IMPRESSION: Small right middle lobar fibrosis ; differential diagnosis includes early/small right middle lobar pneumonia. Moderate -large nonspecific right pleural effusion. Surveillance with contrast CT of the chest recommended within 7-12 weeks. Lung Scan-VQ NM 09/30/16 00:00 IMPRESSION: Matching airspace disease on chest x-ray with decreased perfusion and ventilation on nuclear medicine scan, triple match is a low probability scan for pulmonary embolus. Chest Ultrasound 10/04/16 00:00 IMPRESSION: A small to moderate right pleural effusion is identified. Chest X-Ray 10/04/16 06:00 IMPRESSION: Interval improvement in the right basilar densities. No other significant interval change. Other findings as noted above Assessment & Plan - Diagnosis (1) Iron deficiency anemia secondary to blood loss (chronic) Is this a current diagnosis for this admission?: YesPlan: Hemoglobin is improved today at 9, we'll plan on seeing him as an outpatient and probably instituting erythropoietin stimulator in therapy (2) Pleural effusion Is this a current diagnosis for this admission?: YesPlan: Heart failure related, improved - Time Time Spent with patient: 15-24 minutes Critical Time spent with patient: 15-24 minutes Anticipated discharge: Home
[2016-10-05] MEDS: METOPROLOL SUCCINATE 25 MG TAB.SR.24H PO SCH (11:14)
[2016-10-05] MEDS: AZITHROMYCIN 250 MG TABLET PO SCH (11:14)
[2016-10-05] MEDS: RANOLAZINE 500 MG TAB.SR.12H PO SCH (11:20)
[2016-10-05 11:26] VITALS: BP 139/68
--- NOTE | 2016-10-05 18:32 | PDOC PROGRESS REPORT ---
Subjective Progress Note for:: 10/05/16 Subjective:: Patient seems to be doing better and wants to go home. He has improved shortness of breath on exertion. Pt is denying any chest arm or neck discomfort. Patient denying any PND, orthopnea. Patient denied any sustained palpitations, dizziness, syncope, near syncope. Patient denying any fever chills. Patient denying any other significant discomfort. Patient is maintaining sinus rhythm. Telemetry strips were reviewed. No significant cardiac dysrhythmias were noted. Review of systems: Rest review of systems negative. Medications: Medications have been reviewed. Physical Exam Vital Signs: Temp Pulse Resp BP Pulse Ox 98 F 95 16 139/68 H 96 10/05/16 11:52 10/05/16 11:52 10/05/16 11:52 10/05/16 11:52 10/05/16 11:52 Intake & Output 10/04/16 10/05/16 10/06/16 06:59 06:59 06:59 Intake Total 906 1905 300 Output Total 3 775 250 Balance 903 1130 50 Weight 79.2 kg 79.2 kg Exam: GENERAL: well-nourished and in no acute distress. Alert and oriented x3 HEAD: Atraumatic, normocephalic. EYES: Pupils equal round and reactive to light, extraocular movements intact, sclera anicteric, conjunctiva are normal. ENT: TMs normal, nares patent, oropharynx clear without exudates. Moist mucous membranes. No oral ulcerations or bleeding gums noted NECK: supple without lymphadenopathy. Trachea is central. No cervical or axillary lymphadenopathy noted. Carotids are 2+, JVD WNL LUNGS: Respiration seems nonlabored, no significant accessory muscle action noted. Patient noted to have diminished breath sounds right base and some dullness right base. CHEST: Palpation of the chest wall shows no significant chest wall tenderness or abnormalities. HEART: [place] [employer], No PSH, 1/6 CHARLIE aortic area, 1/6 marks systolic murmur mitral area, no rubs, no gallops. ABDOMEN: Soft, no significant tenderness appreciated, normoactive bowel sounds. No guarding, no rebound. No rigidity noted . No masses appreciated. EXTREMITIES: Pedal pulses are 1-2+, no calf tenderness noted. No clubbing or cyanosis.trace to 1+ pedal edema noted NEUROLOGICAL: Focused neurological exam showed no significant neurologic deficit. Normal speech, no focal weakness appreciated. PSYCH: Normal mood, normal affect. Judgment and insight within normal limits. SKIN: No significant ecchymosis, rash, ulcerations or signs of pruritus noted. MUSCULOSKELETAL EXAM: No significant joint swelling noted. Results Laboratory Results: 10/05/16 09:56 10/05/16 05:27 10/05/16 10/05/16 05:27 09:56 WBC 10.0 RBC 3.89 L Hgb 9.1 L Hct 29.6 L MCV 76 L MCH 23.4 L MCHC 30.8 L RDW 20.2 H Plt Count 218 Seg Neutrophils % 81.1 H Lymphocytes % 7.0 L Monocytes % 6.8 Eosinophils % 3.8 Basophils % 1.3 Absolute Neutrophils 8.1 Absolute Lymphocytes 0.7 Absolute Monocytes 0.7 Absolute Eosinophils 0.4 Absolute Basophils 0.1 Sodium 138.5 Potassium 3.9 Chloride 98 Carbon Dioxide 27 Anion Gap 14 BUN 20 Creatinine 1.76 H Est GFR ( Amer) 46 L Est GFR (Non-Af Amer) 38 L Glucose 186 H Calcium 9.0 09/30/16 09/30/16 09/30/16 13:46 13:46 19:36 Creatine Kinase 184 H 162 CK-MB (CK-2) 2.83 Troponin I 0.037 NT-Pro-B Natriuret Pep 74231 H 09/30/16 10/01/16 10/01/16 19:36 01:25 01:25 Creatine Kinase 145 CK-MB (CK-2) 2.85 3.24 Troponin I 0.034 0.045 NT-Pro-B Natriuret Pep 10/04/16 04:40 Creatine Kinase CK-MB (CK-2) Troponin I NT-Pro-B Natriuret Pep 02363 H Impressions: Chest CT 09/30/16 00:00 IMPRESSION: Small right middle lobar fibrosis ; differential diagnosis includes early/small right middle lobar pneumonia. Moderate -large nonspecific right pleural effusion. Surveillance with contrast CT of the chest recommended within 7-12 weeks. Lung Scan-VQ NM 09/30/16 00:00 IMPRESSION: Matching airspace disease on chest x-ray with decreased perfusion and ventilation on nuclear medicine scan, triple match is a low probability scan for pulmonary embolus. Chest Ultrasound 10/04/16 00:00 IMPRESSION: A small to moderate right pleural effusion is identified. Chest X-Ray 10/04/16 06:00 IMPRESSION: Interval improvement in the right basilar densities. No other significant interval change. Other findings as noted above Assessment & Plan - Diagnosis (1) Coronary artery disease Qualifiers: Coronary Disease-Associated Artery/Lesion type: unspecified vessel or lesion type Associated angina: angina presence unspecified Is this a current diagnosis for this admission?: Yes (2) Cardiomyopathy Qualifiers: Cardiomyopathy type: ischemic Qualified Code(s): I25.5 - Ischemic cardiomyopathy Is this a current diagnosis for this admission?: Yes (3) CHF (congestive heart failure) Qualifiers: Congestive heart failure type: combined Congestive heart failure chronicity: acute on chronic Qualified Code(s): I50.43 - Acute on chronic combined systolic (congestive) and diastolic (congestive) heart failure Is this a current diagnosis for this admission?: Yes (4) Chronic kidney disease Qualifiers: Chronic kidney disease stage: stage 3 (moderate) Qualified Code(s): N18.3 - Chronic kidney disease, stage 3 (moderate) Is this a current diagnosis for this admission?: Yes (5) Anemia Qualifiers: Anemia type: iron deficiency Is this a current diagnosis for this admission?: Yes (6) Hypomagnesemia Is this a current diagnosis for this admission?: Yes (7) Pleural effusion Is this a current diagnosis for this admission?: Yes - Notes Notes: Nonsustained wide-complex tachycardia: Patient started on metoprolol succinate 12.5 mg by mouth twice a day and also Ranexa 500 mg by mouth twice a day, done yesterday and no further significant cardiac dysrhythmias were noted. Patient was noted to be asymptomatic during these spells. Patient denied any prior history of overt syncope or near syncope. Coronary artery disease: Symptomatically stable. Cardiomyopathy: Patient seems to have mild volume overload with CHF finding on chest x-ray. Have placed patient on Demadex 10 mg by mouth daily yesterday. May consider adding spironolactone therapy if cleared by insurance claims adjuster. Patient however seems much improved. Congestive heart failure: Patient due to have a chest x-ray were reviewed and clinically Patient seems improved.. Chronic kidney disease: Currently stable. Anemia: Patient is status post iron transfusion. Hemoglobin has been stable. Continue to follow this closely and transfuse as needed to maintain hemoglobin above 8 g percent. May consider erythropoietin therapy. Hypomagnesemia: This has been corrected. Right pleural effusion: possibly related to CHF. Clinically this seems much improved. This will need to be followed in the office. - Time Time with patient: Greater than 35 minutes - CODE STATUS was discussed, patient remains full code. Surrogate decision-maker unchanged. Multiple medical problems were addressed.More than 50% of the time spent coordinating care, discussing management plans with involved caregivers. Management plans discussed with involved personnels. Medical decision making was of moderate complexity.
== END 2016-10-05 12:09 | disposition home or self-care (01) | DRG 291 ==
LOC: 4S 13:06
PROVIDERS: ADMIT Family Medicine; ATTEND Family Medicine
PROC: 3E0F73Z Introduction of Anti-inflammatory into Respiratory Tract, Via Natural or Artificial Opening (ICD-10-PCS; 2016-09-30)
PROC: 0DB68ZX Excision of Stomach, Via Natural or Artificial Opening Endoscopic, Diagnostic (ICD-10-PCS; principal; 2016-10-01 17:30)
PROC: 0DBP8ZX Excision of Rectum, Via Natural or Artificial Opening Endoscopic, Diagnostic (ICD-10-PCS; 2016-10-01 17:30)
DX: I13.0 Hypertensive heart and chronic kidney disease with heart failure and stage 1 through stage 4 chronic kidney disease, or unspecified chronic kidney disease (principal); I50.43 Acute on chronic combined systolic (congestive) and diastolic (congestive) heart failure; J18.9 Pneumonia, unspecified organism; J91.8 Pleural effusion in other conditions classified elsewhere; N17.9 Acute kidney failure, unspecified; N18.3 Chronic kidney disease, stage 3 (moderate); I25.5 Ischemic cardiomyopathy; I25.10 Atherosclerotic heart disease of native coronary artery without angina pectoris; K21.0 Gastro-esophageal reflux disease with esophagitis; D50.0 Iron deficiency anemia secondary to blood loss (chronic); F03.90 Unspecified dementia, unspecified severity, without behavioral disturbance, psychotic disturbance, mood disturbance, and anxiety; E11.22 Type 2 diabetes mellitus with diabetic chronic kidney disease; E78.5 Hyperlipidemia, unspecified; E83.42 Hypomagnesemia; K44.9 Diaphragmatic hernia without obstruction or gangrene; K62.1 Rectal polyp; K22.70 Barrett's esophagus without dysplasia; Z95.1 Presence of aortocoronary bypass graft; Z87.11 Personal history of peptic ulcer disease; Z87.891 Personal history of nicotine dependence; Z79.899 Other long term (current) drug therapy; Z88.6 Allergy status to analgesic agent; Z79.02 Long term (current) use of antithrombotics/antiplatelets; Z95.5 Presence of coronary angioplasty implant and graft
CPT/HCPCS: 36415; 43239; 45385; 71020; 71250; 76604; 78582; 80048; 80053; 82550; 82553; 82607; 82728; 82746; 82962; 83540; 83550; 83735; 83880; 84132; 84466; 84484; 85025; 85045; 85610; 88305; 93306; A9540; A9567; J0171; J0696; J1610; J1815; J1940; J2250; J2310; J2550; J3010; J3475; J3490; Q0138; Q9969

== ENCOUNTER → 2016-10-09 | Outpatient (CLI) | payer MEDICARE | LOC: RAD 13:08 | PROVIDERS: ATTEND Family Medicine | DX: I50.21 Acute systolic (congestive) heart failure (principal) | CPT/HCPCS: 71020 ==